=== PATIENT | female | born 1965 | race Caucasian/White ===

== ENCOUNTER 2020-12-24 00:47 | Emergency (ER) | payer OTHER ==
[2020-12-24] MEDS ORDERED: Reglan 10 MG/2 ML IV ONE (01:24)
[2020-12-24] MEDS ORDERED: TORAdol 30 mg Injection IV ONE (01:24)
--- NOTE | 2020-12-24 01:34 | ERPHSYRPT ---
- History of Present Illness Time Seen by Provider: 12/24/20 01:17 Historian: patient Exam Limitations: no limitations Patient Subjective Stated Complaint: . Triage Nursing Assessment: . Physician History: 55 years old female with history of hypertension, hyperlipidemia, chronic back pain presented to the ER with chief complaint of right flank pain sudden onset almost 3 hours ago, continuous, nonradiating, without any significant aggravating or relieving factors, associated with nausea but no vomiting. Denies any urinary symptoms. Denies any fever or chills. Does have history of appendectomy and cholecystectomy. Timing/Duration: hour(s) (3), constant, sudden, worse Activities at Onset: rest Quality: sharpness Abdominal Pain Onset Location: flank Pain Radiation: no radiation Severity of Pain-Max: severe Severity of Pain-Current: severe Modifying Factors: Improves With: nothing Associated Symptoms: nausea Previous symptoms: no prior history Allergies/Adverse Reactions: Sulfa (Sulfonamide Antibiotics) Allergy (Intermediate, Verified 12/24/20 01:06) Hives Home Medications: ALPRAZolam [Alprazolam] 0.5 mg PO Q8H PRN PRN 12/24/20 [History] Cyclobenzaprine HCl 10 mg [Cyclobenzaprine 10 MG] 10 mg PO Q12H PRN PRN 12/24/20 [History] Methadone HCl 5 mg PO TID 12/24/20 [History] lisinopriL [Lisinopril] 20 mg PO BID 12/24/20 [History] Hx Tetanus, Diphtheria Vaccination/Date Given: No Hx Influenza Vaccination/Date Given: Yes Hx Pneumococcal Vaccination/Date Given: No Immunizations Up to Date: Yes Travel Risk - International Travel Have you traveled outside of the country in past 3 weeks: No - Coronavirus Screening Are you exhibiting any of the following symptoms?: No Close contact with a COVID-19 positive Pt in past 14-21 Days: No - Vaccine Status Have you recieved a Covid-19 vaccination: No - Review of Systems Constitutional: No Symptoms Eyes: No Symptoms Ears, Nose, & Throat: No Symptoms Respiratory: No Symptoms Cardiac: No Symptoms Abdominal/Gastrointestinal: Abdominal Pain, Nausea Genitourinary Symptoms: No Symptoms Musculoskeletal: Arthralgias, Back Pain Skin: No Symptoms Neurological: No Symptoms Psychological: No Symptoms Endocrine: No Symptoms Hematologic/Lymphatic: No Symptoms Immunological/Allergic: No Symptoms - Past Medical History Pertinent Past Medical History: Yes Neurological History: Migraines ENT History: No Pertinent History Cardiac History: No Pertinent History Respiratory History: No Pertinent History Endocrine Medical History: No Pertinent History Musculoskeletal History: No Pertinent History GI Medical History: No Pertinent History History: No Pertinent History Psycho-Social History: Anxiety, Depression Female Reproductive Disorders: No Pertinent History - Past Surgical History Past Surgical History: Yes Neuro Surgical History: No Pertinent History Cardiac: No Pertinent History Respiratory: No Pertinent History Gastrointestinal: Appendectomy, Cholecystectomy Genitourinary: No Pertinent History Musculoskeletal: No Pertinent History Female Surgical History: Tubal Ligation - Social History Smoking Status: Never smoker Exposure to second hand smoke: No Drug Use: none Patient Lives Alone: No - Female History Hx Last Menstrual Period: Tubal Hx Now: No - Nursing Vital Signs Nursing Vital Signs: Initial Vital Signs Temperature 96.7 F 12/24/20 01:14 Pulse Rate 93 H 12/24/20 01:14 Respiratory Rate 20 12/24/20 01:14 Blood Pressure 165/136 12/24/20 01:14 O2 Sat by Pulse Oximetry 98 12/24/20 01:14 Pain Scale Pain Intensity 6 - Physical Exam General Appearance: no apparent distress, alert Eye Exam: PERRL/EOMI Ears, Nose, Throat Exam: normal ENT inspection, pharynx normal Neck Exam: normal inspection, full range of motion Respiratory Exam: normal breath sounds, lungs clear Cardiovascular Exam: regular rate/rhythm, normal heart sounds Gastrointestinal/Abdomen Exam: soft, normal bowel sounds, tenderness (Right flank) Back Exam: normal inspection Extremity Exam: normal inspection, normal range of motion Neurologic Exam: alert, oriented x 3, cooperative Skin Exam: normal color SpO2 Interpretation: normal SpO2: 98 O2 Delivery: Room Air Procedures - Central Line Time Of Procedure: 07:46 Timeout: Performed Central Line Lumen: triple Lumen Size: 7 [place] Central Line Procedure: chlorahexadine prep, sterile drapes applied, sterile dressing applied, Aseptic Technique, Seldinger Technique Central Line Postion: femoral (L) Anesthesia: 1% Lidocaine cc's of anesthesia: 4 Ultrasound Guided Placement: Yes Complications: none Central Line Post Position: sutured Ordered Tests: Medication Summary Discontinued Medications Generic Name Dose Route Start Last Admin Trade Name Freq PRN Reason Stop Dose Admin Hydralazine HCl 20 mg 12/24/20 06:24 12/24/20 06:32 Apresoline 20 Mg/Ml Inj IV 12/24/20 06:25 20 mg STAT ONE Administration Hydralazine HCl Confirm 12/24/20 06:24 Apresoline 20 Mg/Ml Inj Administered 12/24/20 06:25 Dose 20 mg .ROUTE .STK-MED ONE Hydromorphone HCl 1 mg 12/24/20 01:38 12/24/20 01:49 Hydromorphone 1 Mg/Ml Injection IM 12/24/20 01:39 1 mg STAT ONE Administration Hydromorphone HCl Confirm 12/24/20 01:41 Hydromorphone 1 Mg/Ml Injection Administered 12/24/20 01:42 Dose 1 mg .ROUTE .STK-MED ONE Hydromorphone HCl 1 mg 12/24/20 04:27 12/24/20 04:38 Hydromorphone 1 Mg/Ml Injection IV 12/24/20 04:28 1 mg STAT ONE Administration Hydromorphone HCl Confirm 12/24/20 04:33 Hydromorphone 1 Mg/Ml Injection Administered 12/24/20 04:34 Dose 1 mg .ROUTE .STK-MED ONE Ceftriaxone Sodium/Dextrose 2 g in 50 mls @ 100 mls/hr 12/24/20 04:27 12/24/20 05:16 Rocephin 2 Gm-D5w 50ml Bag IV 12/24/20 04:56 Infused STAT STA Infusion Sodium Chloride 1,000 mls @ 999 mls/hr 12/24/20 04:27 12/24/20 05:45 Sodium Chloride 0.9% 1000 Ml IV 12/24/20 05:27 Infused .Q1H1M STA Infusion Sodium Chloride Confirm 12/24/20 04:33 Sodium Chloride 0.9% 1000 Ml Administered 12/24/20 04:34 Dose 1,000 mls @ ud .ROUTE .STK-MED ONE Ceftriaxone Sodium/Dextrose Confirm 12/24/20 04:33 Rocephin 2 Gm-D5w 50ml Bag Administered 12/24/20 04:34 Dose 2 g in 50 mls @ ud IV .STK-MED ONE Nicardipine HCl 25 mg/ Sodium 250 mls @ 0 mls/hr 12/24/20 07:47 Chloride IV 01/23/21 07:46 .Q0M PRN TITRATE FOR BLOOD PRESSURE Protocol Titrate Ketorolac Tromethamine 30 mg 12/24/20 01:24 12/24/20 01:38 Toradol 30 Mg Injection IV 12/24/20 01:25 Not Given STAT ONE Metoclopramide HCl 10 mg 12/24/20 01:24 12/24/20 01:38 Reglan 10 Mg/2 Ml IV 12/24/20 01:25 Not Given STAT ONE Ondansetron HCl 4 mg 12/24/20 01:39 12/24/20 01:49 Zofran 4 Mg/2 Ml Vial IM 12/24/20 01:40 4 mg STAT ONE Administration Ondansetron HCl Confirm 12/24/20 01:41 Zofran 4 Mg/2 Ml Vial Administered 12/24/20 01:42 Dose 4 mg .ROUTE .STK-MED ONE Tamsulosin HCl 0.8 mg 12/24/20 03:37 12/24/20 03:39 Flomax 0.4 Mg PO 12/24/20 03:38 0.8 mg DAILY STA Administration Tamsulosin HCl Confirm 12/24/20 03:39 Flomax 0.4 Mg Administered 12/24/20 03:40 Dose 0.8 mg .ROUTE .STK-MED ONE Lab/Rad Data: Laboratory Result Diagrams 12/24/20 01:40 12/24/20 01:40 Laboratory Results 12/24/20 12/24/20 12/24/20 Range/Units 01:40 01:40 01:40 WBC 10.1 (4.0-10.5) K/mm3 RBC 4.68 (4.1-5.4) M/mm3 Hgb 14.2 (12.0-16.0) gm/dl Hct 44.8 (35-47) % MCV 95.7 (78-100) fl MCH 30.3 (26-32) pg MCHC 31.7 L (32-36) g/dl RDW 13.2 (11.5-14.0) % Plt Count 124 L (150-450) K/mm3 MPV 11.4 H (7.5-11.0) fl Gran % 84.5 H (36.0-66.0) % Eos # (Auto) 0.04 (0-0.5) Absolute Lymphs (auto) 1.14 (1.0-4.6) Absolute Monos (auto) 0.36 (0.0-1.3) Lymphocytes % 11.2 L (24.0-44.0) % Monocytes % 3.6 (0.0-12.0) % Eosinophils % 0.4 (0.00-5.0) % Basophils % 0.3 (0.0-0.4) % Absolute Granulocytes 8.57 H (1.4-6.9) Basophils # 0.03 (0-0.4) Sodium 138 (137-145) mmol/L Potassium 3.9 (3.5-5.1) mmol/L Chloride 103 (98-107) mmol/L Carbon Dioxide 21 L (22-30) mmol/L Anion Gap 18.0 H (5-15) MEQ/L BUN 26 H (7-17) mg/dL Creatinine 1.18 H (0.52-1.04) mg/dL Estimated GFR 50.2 ML/MIN Glucose 223 H (74-106) mg/dL Calcium 9.8 (8.4-10.2) mg/dL Total Bilirubin 0.50 (0.2-1.3) mg/dL AST 36 (14-36) U/L ALT 19 (0-35) U/L Alkaline Phosphatase 78 (38-126) U/L Serum Total Protein 7.1 (6.3-8.2) g/dL Albumin 4.1 (3.5-5.0) g/dL Lipase 83 (23-300) U/L Urine Color YELLOW (YELLOW) Urine Appearance CLOUDY (CLEAR) Urine pH 6.0 (5-6) Ur Specific [place] 1.013 (1.005-1.025) Urine Protein NEGATIVE (Negative) Urine Ketones TRACE (NEGATIVE) Urine Blood SMALL (0-5) Vaibhav/ul Urine Nitrite NEGATIVE (NEGATIVE) Urine Bilirubin NEGATIVE (NEGATIVE) Urine Urobilinogen 2 (0-1) mg/dL Ur Leukocyte Esterase LARGE (NEGATIVE) Urine WBC (Auto) 51-100 (0-5) /HPF Urine RBC (Auto) 6-10 (0-2) /HPF U Epithel Cells (Auto) NONE (FEW) /HPF Urine Bacteria (Auto) MODERATE (NEGATIVE) /HPF Urine Mucus (Auto) SLIGHT (NEGATIVE) /HPF Urine Culture Reflexed YES (NO) Urine Glucose 150 (NEGATIVE) mg/dL - Progress Progress: improved, pain not gone completely, re-examined Progress Note: 12/24/20 06:55 55 years old is evaluated for right flank pain. She is given pain medications multiple times and her pain is better. Work-up showed normal white count, kidney functions at baseline with mildly elevated gap. She does have UTI and given a dose of Rocephin. Patient has history of adult polycystic kidney disease and her blood pressure is in 200s, given hydralazine but still in 200 but denies any headache visual symptoms, chest pain palpitations or shortness of breath. Discussed with Dr. Mas for admission, recommended transfer to facility with urology services. Discussed with Dr. Humphreys at [facility] ER and patient is accepted for transfer. Discussed with Dr.: Jose, Other (Dr. Humphreys) Counseled pt/family regarding: lab results, diagnosis, rad results - Departure Departure Disposition: Transfer Clinical Impression: Ureterolithiasis, Acute UTI, Uncontrolled hypertension Condition: Stable Critical Care Time: Yes Critical Care Time(excluding separately billable procedures): Critical 30-74 mins Referrals: LORAINE BOO [Primary Care Provider] -
[2020-12-24] MEDS ORDERED: Hydromorphone 1 mg/ml Injection IM ONE (01:38)
[2020-12-24] MEDS ORDERED: Zofran 4 MG/2 ML VIAL IM ONE (01:39)
[2020-12-24] MEDS ORDERED: Hydromorphone 1 mg/ml Injection ONE ×2 (01:41→04:33)
[2020-12-24] MEDS ORDERED: Zofran 4 MG/2 ML VIAL ONE (01:41)
[2020-12-24 02:02] LABS: Absolute Neutrophil Ct (ANC) 8.57 (1.4-6.9); BASOPHIL % 0.3 % (0.0-0.4); Basophil (Absolute #) 0.03 (0-0.4); Eosinophil % 0.4 % (0.00-5.0); Eosinophil (Absolute #) 0.04 (0-0.5); Hematocrit 44.8 % (35-47); Hemoglobin 14.2 gm/dl (12.0-16.0); Lymphocyte (Absolute #) 1.14 (1.0-4.6); Lymphocytes % 11.2 % (24.0-44.0); Mean Cell Volume 95.7 fl (78-100); Mean Corpuscular Hemoglobin 30.3 pg (26-32); Mean Corpuscular Hgb Concent. 31.7 g/dl (32-36); Mean Platelet Volume 11.4 fl (7.5-11.0); Monocyte (Absolute #) 0.36 (0.0-1.3); Monocytes % 3.6 % (0.0-12.0); Neutrophil % 84.5 % (36.0-66.0); Platelet Count 124 K/mm3 (150-450); Red Blood Count 4.68 M/mm3 (4.1-5.4); Red Cell Distribution Width 13.2 % (11.5-14.0); White Blood Count 10.1 K/mm3 (4.0-10.5)
[2020-12-24 02:07] LABS: Appearance CLOUDY (CLEAR); Bacteria MODERATE /HPF (NEGATIVE); Bilirubin NEGATIVE (NEGATIVE); Blood SMALL Ery/ul (0-5); Glucose 150 mg/dL (NEGATIVE); Ketones TRACE (NEGATIVE); Leukocyte Esterase LARGE (NEGATIVE); Mucus SLIGHT /HPF (NEGATIVE); Nitrite NEGATIVE (NEGATIVE); Protein,Urine Dip NEGATIVE (Negative); Specific Gravity 1.013 (1.005-1.025); Urobilinogen 2 mg/dL (0-1); WBC 51-100 /HPF (0-5)
[2020-12-24 02:21] LABS: ALBUMIN 4.1 g/dL (3.5-5.0); BILIRUBIN,TOTAL 0.5 mg/dL (0.2-1.3); Calcium 9.8 mg/dL (8.4-10.2); Creatinine 1 1.18 mg/dL (0.52-1.04); EST GLOMERULAR FILTRATION RATE 50.2 ML/MIN; Potassium 3.9 mmol/L (3.5-5.1); Total Protein 7.1 g/dL (6.3-8.2)
[2020-12-24] MEDS ORDERED: Flomax 0.4 MG PO STA (03:37)
[2020-12-24] MEDS ORDERED: Flomax 0.4 MG ONE (03:39)
[2020-12-24] MEDS ORDERED: ROCEPHIN 2 Gm-D5w 50ML BAG** 2 G/50 ML IVPB IV STA (04:27)
[2020-12-24] MEDS ORDERED: Hydromorphone 1 mg/ml Injection IV ONE (04:27)
[2020-12-24] MEDS ORDERED: Sodium Chloride 0.9% 1000 ML 1,000 ML IV STA (04:27)
[2020-12-24] MEDS ORDERED: ROCEPHIN 2 Gm-D5w 50ML BAG** 2 G/50 ML IVPB IV ONE (04:33)
[2020-12-24] MEDS ORDERED: Sodium Chloride 0.9% 1000 ML 1,000 ML ONE (04:33)
[2020-12-24 06:23] VITALS: PULSE 90
[2020-12-24] MEDS ORDERED: APRESOLINE 20 MG/ML INJ ONE (06:24)
[2020-12-24] MEDS ORDERED: APRESOLINE 20 MG/ML INJ IV ONE (06:24)
[2020-12-24 06:57] VITALS: O2SAT 98
[2020-12-24] MEDS ORDERED: CARDENE 25 MG/10 ML*** 25 MG in Sodium Chloride 0.9% 250 ML 240 ML IV PRN (07:47)
[2020-12-24 08:12] VITALS: BP 186/124
--- NOTE | 2020-12-24 08:59 | XRAY ---
Indication: Right flank pain. Multiple contiguous axial images obtained through the abdomen and pelvis without contrast. Comparison: None. Lung bases demonstrates minimal bibasilar fibrosis/scarring. No infiltrate or effusion. Heart is not enlarged. Stomach is mildly fluid distended. Noncontrasted stomach and bowel loops appear nonobstructed. Cholecystectomy and appendectomy reported. No free fluid/air. Common bile duct distended up to 1.6 cm. Numerous bilateral renal cysts favoring polycystic kidney disease. There is a 4 mm right UVJ calculus. Proximal right ureter slightly prominent with mild hydronephrosis/renal edema and minimal perinephric stranding consistent with obstructive uropathy. Nonobstructing 3 mm left renal calculus. Remaining liver, pancreas, spleen, adrenal glands, kidneys, ureters, bladder, uterus, and aorta unremarkable for noncontrast exam. Osseous structures intact with mild osteopenia and mild/moderate multilevel degenerative spondylosis. Impression: 1. 4 mm right UVJ obstructing calculus as detailed. Additional nonobstructing left renal micro-calculus. 2. Distended common bile duct better evaluated with MRCP/ERCP if clinically warranted. 3. Incidental polycystic kidney disease and chronic bony findings. Comment: Preliminary interpretation was made by [facility]. No critical discrepancy.
== END 2020-12-24 08:56 | disposition short-term general hospital (02) ==
LOC: ED 00:47
DX: N20.1 Calculus of ureter (principal); N39.0 Urinary tract infection, site not specified; I10 Essential (primary) hypertension; E78.5 Hyperlipidemia, unspecified; R10.9 Unspecified abdominal pain; R11.0 Nausea; Z79.899 Other long term (current) drug therapy
CPT/HCPCS: 36415; 36556; 74176; 80053; 81001; 83690; 85025; 87077; 87086; 87186; 96360; 96365; 96372; 96375; 96376; 99285; 99291; J0360; J0696; J1170; J2405; A9270-GY

== ENCOUNTER 2021-10-01 16:06 | Emergency (ER) | payer OTHER ==
--- NOTE | 2021-10-01 16:11 | ERPHSYRPT ---
- History of Present Illness Time Seen by Provider: 10/01/21 16:11 Source: patient Exam Limitations: no limitations Physician History: This is a morbidly obese 56 y/o white female who was seen by pcp at clinic yesterday and had blood work performed. pt has bp issues and is on lisinopril. she was also considered pre diabetic. pt was notified today about blood glucose level of over 800. pt has been nauseated and has been weak lately. pt denies cp and denies sob. she does not have abd pain. she does not have a headache or visual changes Timing/Duration: today Severity: mild Associated Symptoms: nausea, weakness, No shortness of breath, No chest pain, No headaches Allergies/Adverse Reactions: Sulfa (Sulfonamide Antibiotics) Allergy (Intermediate, Verified 10/01/21 16:12) Hives Home Medications: ALPRAZolam [Alprazolam] 0.5 mg PO Q8H PRN PRN 12/24/20 [History] lisinopriL [Lisinopril] 20 mg PO BID 12/24/20 [History] Amlodipine Besylate 5 mg [Norvasc 5 mg] 10 mg PO HS 10/01/21 [History] Gabapentin 400 mg [Neurontin 400 MG] 1 tab PO TID 10/01/21 [History] Hydrocodone/Acetaminophen [Hydrocodone-Acetamin 10-325 mg] 1 tab PO QID 10/01/21 [History] Propranolol HCl [Propranolol HCl ER] 1 tab PO DAILY 10/01/21 [History] Tizanidine HCl 1 tab PO BID 10/01/21 [History] Hx Tetanus, Diphtheria Vaccination/Date Given: No Hx Influenza Vaccination/Date Given: Yes Hx Pneumococcal Vaccination/Date Given: No Travel Risk - International Travel Have you traveled outside of the country in past 3 weeks: No - Coronavirus Screening Are you exhibiting any of the following symptoms?: No Close contact with a COVID-19 positive Pt in past 14-21 Days: No - Vaccine Status Have you recieved a Covid-19 vaccination: No - Review of Systems Constitutional: Weakness Eyes: No Symptoms Ears, Nose, & Throat: No Symptoms Respiratory: No Symptoms Cardiac: No Symptoms Abdominal/Gastrointestinal: Nausea, No Abdominal Pain, No Vomiting, No Diarrhea Genitourinary Symptoms: No Symptoms Musculoskeletal: No Symptoms Skin: No Symptoms Neurological: No Symptoms Psychological: No Symptoms Endocrine: No Symptoms Hematologic/Lymphatic: No Symptoms Immunological/Allergic: No Symptoms All Other Systems: Reviewed and Negative - Past Medical History Pertinent Past Medical History: Yes Neurological History: Migraines ENT History: No Pertinent History Cardiac History: No Pertinent History Respiratory History: No Pertinent History Endocrine Medical History: No Pertinent History Musculoskeletal History: No Pertinent History GI Medical History: No Pertinent History History: No Pertinent History Psycho-Social History: Anxiety, Depression Female Reproductive Disorders: No Pertinent History - Past Surgical History Past Surgical History: Yes Neuro Surgical History: No Pertinent History Cardiac: No Pertinent History Respiratory: No Pertinent History Gastrointestinal: Appendectomy, Cholecystectomy Genitourinary: No Pertinent History Musculoskeletal: No Pertinent History Female Surgical History: Tubal Ligation - Social History Smoking Status: Never smoker Exposure to second hand smoke: No Drug Use: none Patient Lives Alone: No - Nursing Vital Signs Nursing Vital Signs: Initial Vital Signs Temperature 96.5 F 10/01/21 16:18 Pulse Rate 92 H 10/01/21 16:18 Respiratory Rate 14 10/01/21 16:18 Blood Pressure 163/130 10/01/21 16:18 O2 Sat by Pulse Oximetry 88 L 10/01/21 16:18 Pain Scale Pain Intensity 0 - Physical Exam General Appearance: no apparent distress, alert, anxiety, obese Eye Exam: PERRL/EOMI, eyes nml inspection Ears, Nose, Throat Exam: normal ENT inspection, moist mucous membranes Neck Exam: normal inspection, non-tender, supple, full range of motion Respiratory Exam: normal breath sounds, lungs clear, airway intact, No chest tenderness, No respiratory distress Cardiovascular Exam: regular rate/rhythm, normal heart sounds, normal peripheral pulses Gastrointestinal/Abdomen Exam: soft, normal bowel sounds, No tenderness Pelvic Exam: not done Rectal Exam: not done Back Exam: normal inspection, normal range of motion, No CVA tenderness, No vertebral tenderness Extremity Exam: normal inspection, normal range of motion, pelvis stable Neurologic Exam: alert, oriented x 3, cooperative, bottle packer II-XII nml as tested, normal mood/affect, nml cerebellar function, nml station & gait, sensation nml Skin Exam: normal color, warm, dry Lymphatic Exam: No adenopathy SpO2 Interpretation: normal O2 Delivery: Room Air - Course Nursing assessment & vital signs reviewed: Yes EKG Interpreted by Me: RATE (77), Sinus Rhythm, Right [place] Deviation, NORMAL INTERVALS, NORMAL QRS, Non-specific ST Changes, Other (no acute ischemia, the sinus tach on comparison ekg dated 07/07/20 has resolved) Ordered Tests: Active Orders 24 hr Category Date Time Status Reduction Furnace Operator STAT Care 10/01/21 16:28 Active EKG-ER Only STAT Care 10/01/21 16:27 Active IV Insertion STAT Care 10/01/21 16:27 Active IV Insertion-2nd Peripheral STAT Care 10/01/21 16:59 Active POCT Glucose Check STAT Care 10/01/21 16:27 Active Pulse Oximetry (ED) STAT Care 10/01/21 16:27 Active CBC W DIFF Stat Lab 10/01/21 17:05 Completed CMP Stat Lab 10/01/21 17:05 Completed CULTURE,URINE Stat Lab 10/01/21 18:23 Received Lactic Acid Urgent Lab 10/01/21 16:39 Completed MAGNESIUM Stat Lab 10/01/21 17:05 Completed POCT GLUCOSE Stat Lab 10/01/21 18:07 Completed POCT GLUCOSE Stat Lab 10/01/21 19:09 Completed TROPONIN Q3H Lab 10/01/21 17:00 Completed TROPONIN Q3H Lab 10/01/21 21:00 Ordered UA W/RFX CULTURE Stat Lab 10/01/21 18:23 Completed Medication Summary Generic Name Dose Route Start Last Admin Trade Name Freq PRN Reason Stop Dose Admin Sodium Chloride 1,000 mls @ 100 mls/hr 10/01/21 16:30 10/01/21 19:24 Sodium Chloride 0.9% 1000 Ml IV 10/31/21 16:29 999 mls/hr .Q10H BARBER Infusion Discontinued Medications Generic Name Dose Route Start Last Admin Trade Name Freq PRN Reason Stop Dose Admin Ceftriaxone Sodium/Dextrose 1 g in 50 mls @ 100 mls/hr 10/01/21 19:03 10/01/21 19:06 Rocephin 1 Gm-D5w 50 Ml Bag IV 10/01/21 19:32 100 mls/hr STAT STA 100 mls/hr Administration Ceftriaxone Sodium/Dextrose Confirm 10/01/21 19:05 Rocephin 1 Gm-D5w 50 Ml Bag Administered 10/01/21 19:06 Dose 1 g in 50 mls @ ud IV .STK-MED ONE Insulin Human Regular 18 unit 10/01/21 16:34 10/01/21 16:50 Insulin Regular, Human 1 Unit IV 10/01/21 16:35 18 unit STAT ONE Administration Insulin Human Regular Confirm 10/01/21 16:49 Insulin Regular, Human 1 Unit Administered 10/01/21 16:50 Dose 18 unit .ROUTE .STK-MED ONE Insulin Human Regular 5 unit 10/01/21 18:12 10/01/21 18:22 Insulin Regular, Human 1 Unit IV 10/01/21 18:13 5 unit STAT ONE Administration Insulin Human Regular Confirm 10/01/21 18:17 Insulin Regular, Human 1 Unit Administered 10/01/21 18:18 Dose 5 unit .ROUTE .STK-MED ONE Ondansetron HCl 4 mg 10/01/21 16:27 10/01/21 16:35 Ondansetron Hcl 4 Mg/2 Ml Vial IV 10/01/21 16:28 4 mg STAT ONE Administration Ondansetron HCl Confirm 10/01/21 16:34 Ondansetron Hcl 4 Mg/2 Ml Vial Administered 10/01/21 16:35 Dose 4 mg .ROUTE .STK-MED ONE Lab/Rad Data: Laboratory Result Diagrams 10/01/21 17:05 10/01/21 17:05 Laboratory Results 10/01/21 10/01/21 10/01/21 Range/Units 19:09 18:23 18:07 WBC (4.0-10.5) K/mm3 RBC (4.1-5.4) M/mm3 Hgb (12.0-16.0) gm/dl Hct (35-47) % MCV (78-100) fl MCH (26-32) pg MCHC (32-36) g/dl RDW (11.5-14.0) % Plt Count (150-450) K/mm3 MPV (7.5-11.0) fl Gran % (36.0-66.0) % Eos # (Auto) (0-0.5) Absolute Lymphs (auto) (1.0-4.6) Absolute Monos (auto) (0.0-1.3) Lymphocytes % (24.0-44.0) % Monocytes % (0.0-12.0) % Eosinophils % (0.00-5.0) % Basophils % (0.0-0.4) % Absolute Granulocytes (1.4-6.9) Basophils # (0-0.4) Sodium (137-145) mmol/L Potassium (3.5-5.1) mmol/L Chloride (98-107) mmol/L Carbon Dioxide (22-30) mmol/L Anion Gap (5-15) MEQ/L BUN (7-17) mg/dL Creatinine (0.52-1.04) mg/dL Estimated GFR ML/MIN Glucose (74-106) mg/dL POC Glucometer 232 H 373 H (74 to 106) mg/dL Lactic Acid (0.4-2.0) Calcium (8.4-10.2) mg/dL Magnesium (1.6-2.3) mg/dL Total Bilirubin (0.2-1.3) mg/dL AST (14-36) U/L ALT (0-35) U/L Alkaline Phosphatase (38-126) U/L Troponin I (0.000-0.034) ng/mL Serum Total Protein (6.3-8.2) g/dL Albumin (3.5-5.0) g/dL Urinalys Dipstick Clnc MAIN LAB Urine Color YELLOW (YELLOW) Urine Appearance CLEAR (CLEAR) Urine pH 5.5 (5-6) Ur Specific [place] 1.010 (1.005-1.025) POC Urine Protein Conf NEGATIVE (Negative) Urine Ketones NEGATIVE (NEGATIVE) Urine Nitrite NEGATIVE (NEGATIVE) Urine Bilirubin NEGATIVE (NEGATIVE) Urine Urobilinogen 0.2 (0-1) mg/dL Urine Leukocytes TRACE (NEGATIVE) Urine WBC (Auto) 26-50 (0-5) /HPF Urine RBC (Auto) 3-5 (0-2) /HPF U Epithel Cells (Auto) NONE (FEW) /HPF Urine Bacteria (Auto) MODERATE (NEGATIVE) /HPF Urine RBC NEGATIVE (0-5) Vaibhav/ul Urine Mucus (Auto) SLIGHT (NEGATIVE) /HPF Urine Yeast (Budding) Few (NEGATIVE) /HPF Ur Culture Indicated? YES Urine Glucose >=1000 (NEGATIVE) mg/dL 10/01/21 10/01/21 10/01/21 Range/Units 17:05 17:05 17:00 WBC 4.4 (4.0-10.5) K/mm3 RBC 4.82 (4.1-5.4) M/mm3 Hgb 15.1 (12.0-16.0) gm/dl Hct 43.6 (35-47) % MCV 90.5 (78-100) fl MCH 31.3 (26-32) pg MCHC 34.6 (32-36) g/dl RDW 13.5 (11.5-14.0) % Plt Count 164 (150-450) K/mm3 MPV 11.8 H (7.5-11.0) fl Gran % 61.6 (36.0-66.0) % Eos # (Auto) 0.16 (0-0.5) Absolute Lymphs (auto) 1.38 (1.0-4.6) Absolute Monos (auto) 0.13 (0.0-1.3) Lymphocytes % 31.5 (24.0-44.0) % Monocytes % 3.0 (0.0-12.0) % Eosinophils % 3.7 (0.00-5.0) % Basophils % 0.2 (0.0-0.4) % Absolute Granulocytes 2.70 (1.4-6.9) Basophils # 0.01 (0-0.4) Sodium 127 L (137-145) mmol/L Potassium 4.4 (3.5-5.1) mmol/L Chloride 87 L (98-107) mmol/L Carbon Dioxide 25 (22-30) mmol/L Anion Gap 19.1 H (5-15) MEQ/L BUN 50 H (7-17) mg/dL Creatinine 1.64 H (0.52-1.04) mg/dL Estimated GFR 34.2 ML/MIN Glucose 787 H* (74-106) mg/dL POC Glucometer (74 to 106) mg/dL Lactic Acid (0.4-2.0) Calcium 10.3 H (8.4-10.2) mg/dL Magnesium 2.0 (1.6-2.3) mg/dL Total Bilirubin 1.30 (0.2-1.3) mg/dL AST 20 (14-36) U/L ALT 19 (0-35) U/L Alkaline Phosphatase 118 (38-126) U/L Troponin I < 0.012 (0.000-0.034) ng/mL Serum Total Protein 7.2 (6.3-8.2) g/dL Albumin 4.3 (3.5-5.0) g/dL Urinalys Dipstick Clnc Urine Color (YELLOW) Urine Appearance (CLEAR) Urine pH (5-6) Ur Specific [place] (1.005-1.025) POC Urine Protein Conf (Negative) Urine Ketones (NEGATIVE) Urine Nitrite (NEGATIVE) Urine Bilirubin (NEGATIVE) Urine Urobilinogen (0-1) mg/dL Urine Leukocytes (NEGATIVE) Urine WBC (Auto) (0-5) /HPF Urine RBC (Auto) (0-2) /HPF U Epithel Cells (Auto) (FEW) /HPF Urine Bacteria (Auto) (NEGATIVE) /HPF Urine RBC (0-5) Vaibhav/ul Urine Mucus (Auto) (NEGATIVE) /HPF Urine Yeast (Budding) (NEGATIVE) /HPF Ur Culture Indicated? Urine Glucose (NEGATIVE) mg/dL 10/01/21 Range/Units 16:39 WBC (4.0-10.5) K/mm3 RBC (4.1-5.4) M/mm3 Hgb (12.0-16.0) gm/dl Hct (35-47) % MCV (78-100) fl MCH (26-32) pg MCHC (32-36) g/dl RDW (11.5-14.0) % Plt Count (150-450) K/mm3 MPV (7.5-11.0) fl Gran % (36.0-66.0) % Eos # (Auto) (0-0.5) Absolute Lymphs (auto) (1.0-4.6) Absolute Monos (auto) (0.0-1.3) Lymphocytes % (24.0-44.0) % Monocytes % (0.0-12.0) % Eosinophils % (0.00-5.0) % Basophils % (0.0-0.4) % Absolute Granulocytes (1.4-6.9) Basophils # (0-0.4) Sodium (137-145) mmol/L Potassium (3.5-5.1) mmol/L Chloride (98-107) mmol/L Carbon Dioxide (22-30) mmol/L Anion Gap (5-15) MEQ/L BUN (7-17) mg/dL Creatinine (0.52-1.04) mg/dL Estimated GFR ML/MIN Glucose (74-106) mg/dL POC Glucometer (74 to 106) mg/dL Lactic Acid 2.0 (0.4-2.0) Calcium (8.4-10.2) mg/dL Magnesium (1.6-2.3) mg/dL Total Bilirubin (0.2-1.3) mg/dL AST (14-36) U/L ALT (0-35) U/L Alkaline Phosphatase (38-126) U/L Troponin I (0.000-0.034) ng/mL Serum Total Protein (6.3-8.2) g/dL Albumin (3.5-5.0) g/dL Urinalys Dipstick Clnc Urine Color (YELLOW) Urine Appearance (CLEAR) Urine pH (5-6) Ur Specific [place] (1.005-1.025) POC Urine Protein Conf (Negative) Urine Ketones (NEGATIVE) Urine Nitrite (NEGATIVE) Urine Bilirubin (NEGATIVE) Urine Urobilinogen (0-1) mg/dL Urine Leukocytes (NEGATIVE) Urine WBC (Auto) (0-5) /HPF Urine RBC (Auto) (0-2) /HPF U Epithel Cells (Auto) (FEW) /HPF Urine Bacteria (Auto) (NEGATIVE) /HPF Urine RBC (0-5) Vaibhav/ul Urine Mucus (Auto) (NEGATIVE) /HPF Urine Yeast (Budding) (NEGATIVE) /HPF Ur Culture Indicated? Urine Glucose (NEGATIVE) mg/dL - Departure Departure Disposition: Home Clinical Impression: Hyperglycemia, UTI (urinary tract infection) Condition: Stable Critical Care Time: No Referrals: LORAINE BOO [NON-STAFF PHY W/O PRIVILEGES] - Follow up/PCP as directed Additional Instructions: drink plenty of fluids. take medications as prescribed. follow up with your prescribing doctor tomorrow for further evaluation and management Prescriptions: Ciprofloxacin [Cipro 500 MG] 500 mg PO BID #14 tablet
[2021-10-01] MEDS ORDERED: Zofran 4 MG/2 ML VIAL IV ONE (16:27)
[2021-10-01] MEDS ORDERED: Sodium Chloride 0.9% 1000 ML 1,000 ML IV SCH (16:30)
[2021-10-01] MEDS ORDERED: Sodium Chloride 0.9% 1000 ML 1,000 ML ONE (16:34)
[2021-10-01] MEDS ORDERED: Zofran 4 MG/2 ML VIAL ONE (16:34)
[2021-10-01] MEDS ORDERED: HUMULIN R IV ONE ×2 (16:34→18:12)
[2021-10-01] MEDS ORDERED: HUMULIN R ONE ×2 (16:49→18:17)
[2021-10-01 17:12] LABS: Basophil (Absolute #) 0.01 (0-0.4); Eosinophil % 3.7 % (0.00-5.0); Eosinophil (Absolute #) 0.16 (0-0.5); Hematocrit 43.6 % (35-47); Hemoglobin 15.1 gm/dl (12.0-16.0); Lymphocyte (Absolute #) 1.38 (1.0-4.6); Lymphocytes % 31.5 % (24.0-44.0); Mean Cell Volume 90.5 fl (78-100); Mean Corpuscular Hemoglobin 31.3 pg (26-32); Mean Corpuscular Hgb Concent. 34.6 g/dl (32-36); Mean Platelet Volume 11.8 fl (7.5-11.0); Monocyte (Absolute #) 0.13 (0.0-1.3); Neutrophil % 61.6 % (36.0-66.0); Platelet Count 164 K/mm3 (150-450); Red Blood Count 4.82 M/mm3 (4.1-5.4); Red Cell Distribution Width 13.5 % (11.5-14.0); White Blood Count 4.4 K/mm3 (4.0-10.5)
[2021-10-01 17:35] LABS: ALBUMIN 4.3 g/dL (3.5-5.0); ANION GAP 19.1 MEQ/L (5-15); BILIRUBIN,TOTAL 1.3 mg/dL (0.2-1.3); Calcium 10.3 mg/dL (8.4-10.2); Creatinine 1 1.64 mg/dL (0.52-1.04); EST GLOMERULAR FILTRATION RATE 34.2 ML/MIN; Potassium 4.4 mmol/L (3.5-5.1); Total Protein 7.2 g/dL (6.3-8.2)
[2021-10-01 18:48] LABS: Appearance CLEAR (CLEAR)
[2021-10-01 18:50] LABS: Bilirubin NEGATIVE (NEGATIVE); Dipstick done @ ? MAIN LAB; Glucose >=1000 mg/dL (NEGATIVE); Ketones NEGATIVE (NEGATIVE); Nitrite NEGATIVE (NEGATIVE); Ph 5.5 (5-6); Protein,Urine Dip NEGATIVE (Negative); RBC NEGATIVE Ery/ul (0-5); Urobilinogen 0.2 mg/dL (0-1)
[2021-10-01 18:55] LABS: Bacteria MODERATE /HPF (NEGATIVE); Mucus SLIGHT /HPF (NEGATIVE); WBC 26-50 /HPF (0-5)
[2021-10-01 19:02] LABS: Budding Yeast Few /HPF (NEGATIVE); Urine Cultured Indicated? YES
[2021-10-01] MEDS ORDERED: ROCEPHIN 1 Gm-D5w 50 ml Bag** 1 G/50 ML IVPB IV STA (19:03)
[2021-10-01] MEDS ORDERED: ROCEPHIN 1 Gm-D5w 50 ml Bag** 1 G/50 ML IVPB IV ONE (19:05)
[2021-10-01 20:08] LABS: INFLUENZA A NEGATIVE (NEGATIVE); INFLUENZA B NEGATIVE (NEGATIVE); RESPIRATORY SYNCTIAL VIRUS NEGATIVE (Negative); SARS-CoV-2 Xpert Express NEGATIVE (NEGATIVE)
[2021-10-01 20:33] VITALS: BP 110/75; PULSE 76; O2SAT 94
== END 2021-10-01 20:37 | disposition home or self-care (01) ==
LOC: ED 16:06
DX: N39.0 Urinary tract infection, site not specified (principal); R73.9 Hyperglycemia, unspecified; R11.0 Nausea; R53.1 Weakness; Z79.891 Long term (current) use of opiate analgesic; Z79.899 Other long term (current) drug therapy; Z20.828 Contact with and (suspected) exposure to other viral communicable diseases
CPT/HCPCS: 0241U; 36000; 36415; 80053; 81015; 82947; 83605; 83735; 84484; 85025; 87086; 93005; 93041; 94760; 96365; 96374; 96375; 96376; 99285; 87077; 87186; J0696; J1815; J2405

== ENCOUNTER 2021-10-05 16:45 | Observation (INO) | payer OTHER ==
[2021-10-05] MEDS ORDERED: Sodium Chloride 0.9% 1000 ML 1,000 ML IV STA ×3 (17:24→23:18)
[2021-10-05] MEDS ORDERED: HUMULIN R SQ ONE (17:24)
[2021-10-05] MEDS ORDERED: HUMULIN R 100 UNIT in Sodium Chloride 0.9% 100 ML BAG 100 ML IV PRN (17:32)
[2021-10-05] MEDS ORDERED: HUMULIN R ONE ×2 (17:39→17:57)
[2021-10-05] MEDS ORDERED: Sodium Chloride 0.9% 1000 ML 1,000 ML ONE ×3 (17:39→23:17)
[2021-10-05 17:50] LABS: VBG BASE EXCESS 2.2 (-2.0-2.0); VBG CARBOXYHEMOGLOBIN 5.1 % T HGB (0.0-6.9); VBG HCO3- 25.1 meq/L (22-28); VBG HEMOGLOBIN 14.2; VBG O2 SATURATION 95.7 (95-100); VBG POTASSIUM 5.4 (3.5-5.1); VBG pH 7.49 (7.32-7.42)
[2021-10-05] MEDS ORDERED: Sodium Chloride 0.9% 100 ML BAG 100 ML ONE (17:57)
[2021-10-05 18:03] LABS: Absolute Neutrophil Ct (ANC) 2.88 (1.4-6.9); Basophil (Absolute #) 0.03 (0-0.4); Eosinophil % 4.8 % (0.00-5.0); Eosinophil (Absolute #) 0.23 (0-0.5); Hematocrit 41.9 % (35-47); Hemoglobin 13.9 gm/dl (12.0-16.0); Lymphocyte (Absolute #) 1.25 (1.0-4.6); Lymphocytes % 25.9 % (24.0-44.0); Mean Cell Volume 95.2 fl (78-100); Mean Corpuscular Hemoglobin 31.6 pg (26-32); Mean Corpuscular Hgb Concent. 33.2 g/dl (32-36); Mean Platelet Volume 12.5 fl (7.5-11.0); Monocyte (Absolute #) 0.43 (0.0-1.3); Monocytes % 8.9 % (0.0-12.0); Neutrophil % 59.8 % (36.0-66.0); Platelet Count 124 K/mm3 (150-450); Red Cell Distribution Width 13.9 % (11.5-14.0); White Blood Count 4.8 K/mm3 (4.0-10.5)
[2021-10-05 18:15] LABS: ALBUMIN 3.9 g/dL (3.5-5.0); ALKALINE PHOSPHATASE 107 U/L (38-126); ANION GAP 16.1 MEQ/L (5-15); BLOOD UREA NITROGEN 40 mg/dL (7-17); CHLORIDE 92 mmol/L (98-107); Calcium 9.9 mg/dL (8.4-10.2); Carbon Dioxide 24 mmol/L (22-30); Creatinine 1 1.34 mg/dL (0.52-1.04); EST GLOMERULAR FILTRATION RATE 43.2 ML/MIN; ETHYL ALCOHOL < 10 mg/dL (0-10); MAGNESIUM 1.9 mg/dL (1.6-2.3); Potassium 5.2 mmol/L (3.5-5.1); SGOT/AST 20 U/L (14-36); SGPT/ALT 18 U/L (0-35); SODIUM 127 mmol/L (137-145); Total Protein 6.5 g/dL (6.3-8.2)
[2021-10-05 18:28] LABS: Glucose 796 mg/dL (74-106)
[2021-10-05 18:31] LABS: Bacteria RARE /HPF (NEGATIVE); Epithelial Cells RARE /HPF (FEW)
[2021-10-05 18:32] LABS: Appearance CLEAR (CLEAR); Bilirubin NEGATIVE (NEGATIVE); Glucose >=1000 mg/dL (NEGATIVE); Ketones NEGATIVE (NEGATIVE); Nitrite NEGATIVE (NEGATIVE); Protein,Urine Dip NEGATIVE (Negative); RBC TRACE-INTACT Ery/ul (0-5); Urine Cultured Indicated? YES; Urobilinogen 0.2 mg/dL (0-1)
[2021-10-05 18:33] LABS: Dipstick done @ ? MAIN LAB
--- NOTE | 2021-10-05 18:39 | ERPHSYRPT ---
- History of Present Illness Source: patient, family Exam Limitations: clinical condition Patient Subjective Stated Complaint: pt here for high blood sugar at home today, she was seen here on thu, for same thing and dx with UTI. she is not taking her metformine, Triage Nursing Assessment: pt alert, resp easy, face mask in place, skin w/d/p. abd soft, no pain Timing/Duration: today Severity: moderate Modifying Factors: Improves With: nothing Hx Tetanus, Diphtheria Vaccination/Date Given: No Hx Influenza Vaccination/Date Given: Yes Hx Pneumococcal Vaccination/Date Given: No Immunizations Up to Date: Yes <SUSAN DELA CRUZ - Last Filed: 10/05/21 18:34> <BILL BANKS - Last Filed: 10/05/21 21:26> - History of Present Illness Time Seen by Provider: 10/05/21 17:20 Physician History: Patient is a 56-year-old female who presents with a blood sugar which is "high". She measured it on a newly acquired glucometer. She was seen in the ER on Thursday of this week with a blood sugar greater than 800 was diagnosed with UTI and was put on metformin which she has not been taking as prescribed. She seems somewhat altered. We find her blood sugar to be higher than our POC glucometer as well. (SUSAN DELA CRUZ) Allergies/Adverse Reactions: Sulfa (Sulfonamide Antibiotics) Allergy (Intermediate, Verified 10/05/21 17:08) Hives Home Medications: ALPRAZolam [Alprazolam] 0.5 mg PO Q8H PRN PRN 12/24/20 [History] lisinopriL [Lisinopril] 20 mg PO BID 12/24/20 [History] Amlodipine Besylate 5 mg [Norvasc 5 mg] 10 mg PO HS 10/01/21 [History] Gabapentin 400 mg [Neurontin 400 MG] 1 tab PO TID 10/01/21 [History] Hydrocodone/Acetaminophen [Hydrocodone-Acetamin 10-325 mg] 1 tab PO QID 10/01/21 [History] Propranolol HCl [Propranolol HCl ER] 1 tab PO DAILY 10/01/21 [History] Tizanidine HCl 1 tab PO BID 10/01/21 [History] Travel Risk - International Travel Have you traveled outside of the country in past 3 weeks: No - Coronavirus Screening Are you exhibiting any of the following symptoms?: No - Vaccine Status Have you recieved a Covid-19 vaccination: No <SUSAN DELA CRUZ - Last Filed: 10/05/21 18:34> - Review of Systems Constitutional: No Fever, No Chills Eyes: No Symptoms Ears, Nose, & Throat: No Symptoms Respiratory: No Cough, No Dyspnea Cardiac: No Chest Pain, No Edema, No Syncope Abdominal/Gastrointestinal: No Abdominal Pain, No Nausea, No Vomiting, No Diarrhea Genitourinary Symptoms: No Dysuria Musculoskeletal: No Back Pain, No Neck Pain Skin: No Rash Neurological: No Dizziness, No Focal Weakness, No Sensory Changes Psychological: No Symptoms Endocrine: No Symptoms All Other Systems: Reviewed and Negative <MARCOSRIGOSUSAN - Last Filed: 10/05/21 18:34> - Past Medical History Pertinent Past Medical History: Yes Neurological History: Migraines ENT History: No Pertinent History Cardiac History: No Pertinent History Respiratory History: No Pertinent History Endocrine Medical History: Diabetes Type II Musculoskeletal History: No Pertinent History GI Medical History: No Pertinent History History: No Pertinent History Psycho-Social History: Anxiety, Depression Female Reproductive Disorders: No Pertinent History Other Medical History: uti 2021 - Past Surgical History Past Surgical History: Yes Neuro Surgical History: No Pertinent History Cardiac: No Pertinent History Respiratory: No Pertinent History Gastrointestinal: Appendectomy, Cholecystectomy Genitourinary: No Pertinent History Musculoskeletal: No Pertinent History Female Surgical History: Tubal Ligation - Social History Smoking Status: Never smoker Exposure to second hand smoke: No Drug Use: none Patient Lives Alone: No <MARCOSRIGOSUSAN - Last Filed: 10/05/21 18:34> - Physical Exam General Appearance: no apparent distress, alert Eye Exam: PERRL/EOMI, eyes nml inspection Ears, Nose, Throat Exam: normal ENT inspection, TMs normal, pharynx normal, mois t mucous membranes Neck Exam: normal inspection, non-tender, supple, full range of motion Respiratory Exam: normal breath sounds, lungs clear, No respiratory distress Cardiovascular Exam: regular rate/rhythm, normal heart sounds, normal peripheral pulses Gastrointestinal/Abdomen Exam: soft, normal bowel sounds, No tenderness, No mass Back Exam: normal inspection, normal range of motion, No CVA tenderness, No vertebral tenderness Extremity Exam: normal inspection, normal range of motion, pelvis stable Neurologic Exam: alert, oriented x 3, cooperative, normal mood/affect, nml cerebellar function, nml station & gait, sensation nml, No motor deficits Skin Exam: normal color, warm, dry, No rash Lymphatic Exam: No adenopathy SpO2: 98 <SUSAN DELA CRUZ - Last Filed: 10/05/21 18:34> - Nursing Vital Signs Nursing Vital Signs: Initial Vital Signs Temperature 97.8 F 10/05/21 17:02 Pulse Rate 85 10/05/21 17:02 Respiratory Rate 18 10/05/21 17:02 Blood Pressure 175/102 10/05/21 17:02 O2 Sat by Pulse Oximetry 91 L 10/05/21 17:02 Pain Scale Pain Intensity 0 - Course Nursing assessment & vital signs reviewed: Yes EKG Interpreted by Me: RATE (75), Sinus Rhythm, NORMAL AXIS, NORMAL INTERVALS, Non-specific ST Changes - Radiology Exams Chest X-ray Interpretation: Interpreted by me, Negative <SUSAN DELA CRUZ - Last Filed: 10/05/21 18:34> - Course Nursing assessment & vital signs reviewed: Yes <BILL BANKS - Last Filed: 10/05/21 21:26> Ordered Tests: Active Orders 24 hr Category Date Time Status EKG-ER Only STAT Care 10/05/21 17:24 Active IV Insertion STAT Care 10/05/21 17:24 Active CHEST 1 VIEW (PORTABLE) Stat Exams 10/05/21 17:24 Completed CBC W DIFF Stat Lab 10/05/21 18:00 Completed CMP Stat Lab 10/05/21 17:24 Completed CULTURE,URINE Stat Lab 10/05/21 17:34 Received ETHYL ALCOHOL Stat Lab 10/05/21 17:24 Completed Lactic Acid Urgent Lab 10/05/21 17:46 Completed MAGNESIUM Stat Lab 10/05/21 17:24 Completed POCT GLUCOSE Stat Lab 10/05/21 18:23 Received POCT GLUCOSE Stat Lab 10/05/21 19:25 Completed POCT GLUCOSE Stat Lab 10/05/21 20:42 Completed UA W/RFX CULTURE Stat Lab 10/05/21 17:34 Completed VENOUS BLOOD GAS Urgent Lab 10/05/21 17:46 Completed Medication Summary Generic Name Dose Route Start Last Admin Trade Name Freq PRN Reason Stop Dose Admin Insulin Human Regular 100 unit 100 mls @ 11 mls/hr 10/05/21 17:32 10/05/21 18:04 / Sodium Chloride IV 11/04/21 17:31 11 unit/hr .Q9H6M PRN 11 mls/hr DKA/HYPERGLYCEMIA Administration Protocol 11 UNIT/HR Discontinued Medications Generic Name Dose Route Start Last Admin Trade Name Chinmay PRN Reason Stop Dose Admin Sodium Chloride 1,000 mls @ 999 mls/hr 10/05/21 17:24 10/05/21 19:11 Sodium Chloride 0.9% 1000 Ml IV 10/05/21 18:24 Infused .Q1H1M STA Infusion Sodium Chloride Confirm 10/05/21 17:39 Sodium Chloride 0.9% 1000 Ml Administered 10/05/21 17:40 Dose 1,000 mls @ ud .ROUTE .STK-MED ONE Sodium Chloride Confirm 10/05/21 17:57 Sodium Chloride 0.9% 100 Ml Bag Administered 10/05/21 17:58 Dose 100 mls @ ud .ROUTE .STK-MED ONE Insulin Human Regular 10 unit 10/05/21 17:24 10/05/21 17:40 Insulin Regular, Human 1 Unit SQ 10/05/21 17:25 10 unit STAT ONE Administration Insulin Human Regular Confirm 10/05/21 17:39 Insulin Regular, Human 1 Unit Administered 10/05/21 17:40 Dose 10 unit .ROUTE .STK-MED ONE Insulin Human Regular Confirm 10/05/21 17:57 Insulin Regular, Human 1 Unit Administered 10/05/21 17:58 Dose 100 unit .ROUTE .STK-MED ONE Lab/Rad Data: Laboratory Result Diagrams 10/05/21 18:00 10/05/21 17:24 Laboratory Results 10/05/21 10/05/21 10/05/21 Range/Units 20:42 19:25 18:00 WBC (4.0-10.5) K/mm3 RBC (4.1-5.4) M/mm3 Hgb (12.0-16.0) gm/dl Hct (35-47) % MCV (78-100) fl MCH (26-32) pg MCHC (32-36) g/dl RDW (11.5-14.0) % Plt Count (150-450) K/mm3 MPV (7.5-11.0) fl Gran % (36.0-66.0) % Eos # (Auto) (0-0.5) Absolute Lymphs (auto) (1.0-4.6) Absolute Monos (auto) (0.0-1.3) Lymphocytes % (24.0-44.0) % Monocytes % (0.0-12.0) % Eosinophils % (0.00-5.0) % Basophils % (0.0-0.4) % Absolute Granulocytes (1.4-6.9) Basophils # (0-0.4) pO2/FiO2 Ratio % VBG pH (7.32-7.42) VBG pCO2 at Pat Temp (42-55) mm/Hg VBG pO2 at Pat Temp (25-40) mm/Hg VBG HCO3 (22-28) meq/L VBG O2 Sat (Ana) (95-100) VBG Base Excess (-2.0-2.0) VBG Hemoglobin VBG Carboxyhemoglobin (0.0-6.9) % T HGB POC Potassium (3.5-5.1) Sodium (137-145) mmol/L Potassium (3.5-5.1) mmol/L Chloride (98-107) mmol/L Carbon Dioxide (22-30) mmol/L Anion Gap (5-15) MEQ/L BUN (7-17) mg/dL Creatinine (0.52-1.04) mg/dL Estimated GFR ML/MIN Glucose (74-106) mg/dL POC Glucometer 237 H 589 H* (50 to 500) mg/dL Lactic Acid (0.4-2.0) Calcium (8.4-10.2) mg/dL Magnesium (1.6-2.3) mg/dL Total Bilirubin (0.2-1.3) mg/dL AST (14-36) U/L ALT (0-35) U/L Alkaline Phosphatase (38-126) U/L Serum Total Protein (6.3-8.2) g/dL Albumin (3.5-5.0) g/dL Urinalys Dipstick Clnc Urine Color (YELLOW) Urine Appearance (CLEAR) Urine pH (5-6) Ur Specific Tully (1.005-1.025) POC Urine Protein Conf (Negative) Urine Ketones (NEGATIVE) Urine Nitrite (NEGATIVE) Urine Bilirubin (NEGATIVE) Urine Urobilinogen (0-1) mg/dL Urine Leukocytes (NEGATIVE) Urine WBC (Auto) (0-5) /HPF Urine RBC (Auto) (0-2) /HPF U Epithel Cells (Auto) (FEW) /HPF Urine Bacteria (Auto) (NEGATIVE) /HPF Urine RBC (0-5) Vaibhav/ul Ur Culture Indicated? Urine Glucose (NEGATIVE) mg/dL Ethyl Alcohol (0-10) mg/dL Influenza Type A Ag NEGATIVE (NEGATIVE) Influenza Type B Ag NEGATIVE (NEGATIVE) RSV (PCR) NEGATIVE (Negative) SARS-CoV-2 (PCR) NEGATIVE (NEGATIVE) Group A Strep Antibody (NEGATIVE) 10/05/21 10/05/21 10/05/21 Range/Units 18:00 18:00 17:46 WBC 4.8 (4.0-10.5) K/mm3 RBC 4.40 (4.1-5.4) M/mm3 Hgb 13.9 (12.0-16.0) gm/dl Hct 41.9 (35-47) % MCV 95.2 (78-100) fl MCH 31.6 (26-32) pg MCHC 33.2 (32-36) g/dl RDW 13.9 (11.5-14.0) % Plt Count 124 L (150-450) K/mm3 MPV 12.5 H (7.5-11.0) fl Gran % 59.8 (36.0-66.0) % Eos # (Auto) 0.23 (0-0.5) Absolute Lymphs (auto) 1.25 (1.0-4.6) Absolute Monos (auto) 0.43 (0.0-1.3) Lymphocytes % 25.9 (24.0-44.0) % Monocytes % 8.9 (0.0-12.0) % Eosinophils % 4.8 (0.00-5.0) % Basophils % 0.6 (0.0-0.4) % Absolute Granulocytes 2.88 (1.4-6.9) Basophils # 0.03 (0-0.4) pO2/FiO2 Ratio 21.0 % VBG pH 7.49 H (7.32-7.42) VBG pCO2 at Pat Temp 33 L (42-55) mm/Hg VBG pO2 at Pat Temp 64 H (25-40) mm/Hg VBG HCO3 25.1 (22-28) meq/L VBG O2 Sat (Ana) 95.7 (95-100) VBG Base Excess 2.2 H (-2.0-2.0) VBG Hemoglobin 14.2 VBG Carboxyhemoglobin 5.1 (0.0-6.9) % T HGB POC Potassium 5.4 H (3.5-5.1) Sodium (137-145) mmol/L Potassium (3.5-5.1) mmol/L Chloride (98-107) mmol/L Carbon Dioxide (22-30) mmol/L Anion Gap (5-15) MEQ/L BUN (7-17) mg/dL Creatinine (0.52-1.04) mg/dL Estimated GFR ML/MIN Glucose (74-106) mg/dL POC Glucometer (50 to 500) mg/dL Lactic Acid (0.4-2.0) Calcium (8.4-10.2) mg/dL Magnesium (1.6-2.3) mg/dL Total Bilirubin (0.2-1.3) mg/dL AST (14-36) U/L ALT (0-35) U/L Alkaline Phosphatase (38-126) U/L Serum Total Protein (6.3-8.2) g/dL Albumin (3.5-5.0) g/dL Urinalys Dipstick Clnc Urine Color (YELLOW) Urine Appearance (CLEAR) Urine pH (5-6) Ur Specific Tully (1.005-1.025) POC Urine Protein Conf (Negative) Urine Ketones (NEGATIVE) Urine Nitrite (NEGATIVE) Urine Bilirubin (NEGATIVE) Urine Urobilinogen (0-1) mg/dL Urine Leukocytes (NEGATIVE) Urine WBC (Auto) (0-5) /HPF Urine RBC (Auto) (0-2) /HPF U Epithel Cells (Auto) (FEW) /HPF Urine Bacteria (Auto) (NEGATIVE) /HPF Urine RBC (0-5) Vaibhav/ul Ur Culture Indicated? Urine Glucose (NEGATIVE) mg/dL Ethyl Alcohol (0-10) mg/dL Influenza Type A Ag (NEGATIVE) Influenza Type B Ag (NEGATIVE) RSV (PCR) (Negative) SARS-CoV-2 (PCR) (NEGATIVE) Group A Strep Antibody NEGATIVE (NEGATIVE) 10/05/21 10/05/21 10/05/21 Range/Units 17:46 17:34 17:24 WBC (4.0-10.5) K/mm3 RBC (4.1-5.4) M/mm3 Hgb (12.0-16.0) gm/dl Hct (35-47) % MCV (78-100) fl MCH (26-32) pg MCHC (32-36) g/dl RDW (11.5-14.0) % Plt Count (150-450) K/mm3 MPV (7.5-11.0) fl Gran % (36.0-66.0) % Eos # (Auto) (0-0.5) Absolute Lymphs (auto) (1.0-4.6) Absolute Monos (auto) (0.0-1.3) Lymphocytes % (24.0-44.0) % Monocytes % (0.0-12.0) % Eosinophils % (0.00-5.0) % Basophils % (0.0-0.4) % Absolute Granulocytes (1.4-6.9) Basophils # (0-0.4) pO2/FiO2 Ratio % VBG pH (7.32-7.42) VBG pCO2 at Pat Temp (42-55) mm/Hg VBG pO2 at Pat Temp (25-40) mm/Hg VBG HCO3 (22-28) meq/L VBG O2 Sat (Ana) (95-100) VBG Base Excess (-2.0-2.0) VBG Hemoglobin VBG Carboxyhemoglobin (0.0-6.9) % T HGB POC Potassium (3.5-5.1) Sodium 127 L (137-145) mmol/L Potassium 5.2 H (3.5-5.1) mmol/L Chloride 92 L (98-107) mmol/L Carbon Dioxide 24 (22-30) mmol/L Anion Gap 16.1 H (5-15) MEQ/L BUN 40 H (7-17) mg/dL Creatinine 1.34 H (0.52-1.04) mg/dL Estimated GFR 43.2 ML/MIN Glucose 796 H* (74-106) mg/dL POC Glucometer (50 to 500) mg/dL Lactic Acid 1.1 (0.4-2.0) Calcium 9.9 (8.4-10.2) mg/dL Magnesium 1.9 (1.6-2.3) mg/dL Total Bilirubin 1.10 (0.2-1.3) mg/dL AST 20 (14-36) U/L ALT 18 (0-35) U/L Alkaline Phosphatase 107 (38-126) U/L Serum Total Protein 6.5 (6.3-8.2) g/dL Albumin 3.9 (3.5-5.0) g/dL Urinalys Dipstick Clnc MAIN LAB Urine Color YELLOW (YELLOW) Urine Appearance CLEAR (CLEAR) Urine pH 6.0 (5-6) Ur Specific Tully 1.010 (1.005-1.025) POC Urine Protein Conf NEGATIVE (Negative) Urine Ketones NEGATIVE (NEGATIVE) Urine Nitrite NEGATIVE (NEGATIVE) Urine Bilirubin NEGATIVE (NEGATIVE) Urine Urobilinogen 0.2 (0-1) mg/dL Urine Leukocytes TRACE (NEGATIVE) Urine WBC (Auto) 6-10 (0-5) /HPF Urine RBC (Auto) 3-5 (0-2) /HPF U Epithel Cells (Auto) RARE (FEW) /HPF Urine Bacteria (Auto) RARE (NEGATIVE) /HPF Urine RBC TRACE-INTACT (0-5) Vaibhav/ul Ur Culture Indicated? YES Urine Glucose >=1000 (NEGATIVE) mg/dL Ethyl Alcohol < 10 (0-10) mg/dL Influenza Type A Ag (NEGATIVE) Influenza Type B Ag (NEGATIVE) RSV (PCR) (Negative) SARS-CoV-2 (PCR) (NEGATIVE) Group A Strep Antibody (NEGATIVE) - Progress Progress: improved <SUSAN DELA CRUZ - Last Filed: 10/05/21 18:34> - Progress Progress: improved Discussed with : Harshal Will see patient in: hospital (observation) Counseled pt/family regarding: lab results, diagnosis, need for follow-up, rad results <BILL BANKS - Last Filed: 10/05/21 21:26> - Progress Progress Note: 10/05/21 19:[address] Dela Cruz at change of shift after discussion of pending labs and dispo potential of new diabetes not responding well to outpt. Tx Normal neuro; No CP or SOBreath. Abd nontender . no pain. no other findings on exam/ROS. 10/05/21 21:17 Discussed with pt and Dr. Sandhu and she and family prefer to stay here , will obs in ICU - glucose is down to 250s on drip now. (BILL BANKS) - Departure Departure Disposition: Observation Critical Care Time: Yes Critical Care Time(excluding separately billable procedures): Critical 30-74 mins <SUSAN DELA CRUZ - Last Filed: 10/05/21 18:34> - Departure Departure Disposition: Observation <BILL BANKS - Last Filed: 10/05/21 21:26> - Departure Clinical Impression: Hyperglycemia, Uncontrolled diabetes mellitus, multiple electrolyte abnormalities and d, UTI (urinary tract infection) Condition: Critical Referrals: ASHVIN RUELAS MD [Primary Care Provider] - Follow up/PCP as directed
[2021-10-05 19:00] LABS: INFLUENZA A NEGATIVE (NEGATIVE); INFLUENZA B NEGATIVE (NEGATIVE); RESPIRATORY SYNCTIAL VIRUS NEGATIVE (Negative); SARS-CoV-2 Xpert Express NEGATIVE (NEGATIVE)
--- NOTE | 2021-10-05 20:15 | XRAY ---
Indication: High blood sugar. Comparison: None Portable chest is clear. Heart not enlarged for AP portable technique. Bony thorax intact with mild degenerative changes. Impression: Nonacute chest.
[2021-10-05 22:51] LABS: VBG BASE EXCESS 0.6 (-2.0-2.0); VBG HCO3- 26.6 meq/L (22-28); VBG HEMOGLOBIN 13.1; VBG O2 SATURATION 81.9 (95-100); VBG POTASSIUM 4.9 (3.5-5.1); VBG pH 7.36 (7.32-7.42)
[2021-10-06] MEDS ORDERED: MORPHINE SULFATE 2 MG INJ IV PRN (00:13)
[2021-10-06] MEDS ORDERED: Zofran 4 MG/2 ML VIAL IV PRN (00:13)
[2021-10-06] MEDS ORDERED: TYLENOL 325 MG PO PRN (00:13)
[2021-10-06] MEDS: Sodium Chloride 0.9% 1000 ML 1,000 ML IV SCH ×2 (00:26→11:31)
[2021-10-06 01:27] LABS: ANION GAP 12.1 MEQ/L (5-15); Calcium 8.7 mg/dL (8.4-10.2); Creatinine 1 1.47 mg/dL (0.52-1.04); EST GLOMERULAR FILTRATION RATE 38.8 ML/MIN; Potassium 4.1 mmol/L (3.5-5.1)
[2021-10-06] MEDS: HUMULIN R SQ PRN ×4 (01:59→11:25)
[2021-10-06 05:31] LABS: Lactic Acid 0.9 (0.4-2.0); VBG BASE EXCESS 1.6 (-2.0-2.0); VBG CARBOXYHEMOGLOBIN 3.3 % T HGB (0.0-6.9); VBG HCO3- 28.9 meq/L (22-28); VBG O2 SATURATION 53.3 (95-100); VBG POTASSIUM 4.9 (3.5-5.1); VBG pH 7.32 (7.32-7.42)
[2021-10-06 06:28] LABS: Absolute Neutrophil Ct (ANC) 2.84 (1.4-6.9); Basophil (Absolute #) 0.05 (0-0.4); Hematocrit 39.6 % (35-47); Hemoglobin 12.9 gm/dl (12.0-16.0); Lymphocyte (Absolute #) 2.27 (1.0-4.6); Lymphocytes % 37.9 % (24.0-44.0); Mean Cell Volume 95.9 fl (78-100); Mean Corpuscular Hemoglobin 31.2 pg (26-32); Mean Corpuscular Hgb Concent. 32.6 g/dl (32-36); Mean Platelet Volume 12.7 fl (7.5-11.0); Monocyte (Absolute #) 0.53 (0.0-1.3); Monocytes % 8.8 % (0.0-12.0); Neutrophil % 47.5 % (36.0-66.0); Platelet Count 135 K/mm3 (150-450); Red Blood Count 4.13 M/mm3 (4.1-5.4); Red Cell Distribution Width 14.4 % (11.5-14.0)
[2021-10-06 06:36] LABS: ALBUMIN 3.4 g/dL (3.5-5.0); ANION GAP 10.2 MEQ/L (5-15); BILIRUBIN,TOTAL 0.7 mg/dL (0.2-1.3); Calcium 8.8 mg/dL (8.4-10.2); Creatinine 1 1.53 mg/dL (0.52-1.04); EST GLOMERULAR FILTRATION RATE 37.1 ML/MIN; Potassium 4.6 mmol/L (3.5-5.1); Total Protein 6.1 g/dL (6.3-8.2)
[2021-10-06] MEDS ORDERED: xanAX 0.5 MG PO PRN (09:50)
[2021-10-06] MEDS ORDERED: HYDROCODONE-ACETAMIN 10-325 MG PO SCH (10:00)
[2021-10-06] MEDS ORDERED: Glucophage 500 MG PO SCH (10:00)
[2021-10-06] MEDS ORDERED: Zestril 20 MG PO SCH (10:00)
[2021-10-06] MEDS ORDERED: Zanaflex 4 MG PO SCH (10:00)
[2021-10-06] MEDS ORDERED: Neurontin 400 MG PO SCH (10:00)
[2021-10-06] MEDS ORDERED: ROCEPHIN 1 Gm-D5w 50 ml Bag** 1 G/50 ML IVPB IV SCH ×2 (10:00→22:00)
[2021-10-06] MEDS ORDERED: NON-FORMULARY ITEM PO SCH (10:00)
[2021-10-06] MEDS ORDERED: PROPRANOLOL HCL 160 MG PO SCH (10:00)
[2021-10-06] MEDS ORDERED: NON-FORMULARY ITEM (Tizanidine Hcl [Tizanidine Hcl] 2 MG Capsule) PO SCH (10:00)
--- NOTE | 2021-10-06 11:06 | PCM.HP ---
History of Present Illness - Chief Complaint Chief Complaint: Uncontrolled diabetes History of Present Illness: is a 56 year old female.who presents with a blood sugar which is "high". She measured it on a newly acquired glucometer. She was seen in the ER on Thursday of this week with a blood sugar greater than 800 was diagnosed with UTI and was put on metformin which she has not been taking as prescribed. She seems somewhat altered. We find her blood sugar to be higher than our POC glucometer as well. - Review of Systems Constitutional: No Fever, No Chills Eyes: No Symptoms Ears, Nose, & Throat: No Symptoms Respiratory: No Cough, No Short Of Breath Cardiac: No Chest Pain, No Edema, No Syncope Abdominal/Gastrointestinal: No Abdominal Pain, No Nausea, No Vomiting, No Diarrhea Genitourinary Symptoms: No Dysuria Musculoskeletal: No Back Pain, No Neck Pain Skin: No Rash Neurological: No Dizziness, No Focal Weakness, No Sensory Changes Psychological: No Symptoms Endocrine: No Symptoms Hematologic/Lymphatic: No Symptoms Immunological/Allergic: No Symptoms Medications & Allergies Home Medications: Home Medication List ALPRAZolam [Alprazolam] 0.5 mg PO Q8H PRN PRN 12/24/20 [History Confirmed 10/05/21] lisinopriL [Lisinopril] 20 mg PO BID 12/24/20 [History Confirmed 10/06/21] Amlodipine Besylate 5 mg [Norvasc 5 mg] 10 mg PO HS 10/01/21 [History Confirmed 10/05/21] Gabapentin 400 mg [Neurontin 400 MG] 1 tab PO TID 10/01/21 [History Confirmed 10/05/21] Hydrocodone/Acetaminophen [Hydrocodone-Acetamin 10-325 mg] 1 tab PO QID 10/01/21 [History Confirmed 10/05/21] Propranolol HCl [Propranolol HCl ER] 160 mg PO DAILY 10/01/21 [History Confirmed 10/06/21] Tizanidine HCl 2 mg PO BID 10/01/21 [History Confirmed 10/06/21] Metformin HCl 500 mg [Glucophage 500 MG] 500 mg PO DAILY 10/06/21 [History Confirmed 10/06/21] Allergies/Adverse Reactions: Allergies Allergy/AdvReac Type Severity Reaction Status Date / Time Sulfa (Sulfonamide Allergy Intermediate Hives Verified 10/06/21 01:28 Antibiotics) - Past Medical History Past Medical History: Yes Neurological History: Migraines ENT History: No Pertinent History Cardiac History: Hypertension Respiratory History: No Pertinent History Endocrine Medical History: Diabetes Type II Musculoskelatal History: No Pertinent History GI Medical History: Gallbladder Disease History: No Pertinent History Pyscho-Social History: Anxiety, Depression Reproductive Disorders: No Pertinent History Comment: uti 2021 - Female History Are you now?: No - Past Surgical History Past Surgical History: Yes Neuro Surgical History: No Pertinent History Cardiac History: No Pertinent History Respiratory Surgery: No Pertinent History GI Surgical History: Appendectomy, Cholecystectomy Genitourinary Surgical Hx: No Pertinent History Musculskeletal Surgical Hx: No Pertinent History Female Surgical History: Tubal Ligation - Social History Smoking Status: Never smoker Exposure to second hand smoke: No Alcohol: Rarely Drug Use: none - Physical Exam Vital Signs: Vital Signs - 24 hr Temp Pulse Resp BP BP Pulse Ox 10/06/21 07:55 98.0 F 66 18 160/97 99 10/06/21 07:46 63 10/06/21 04:00 97.3 F 64 17 119/77 96 10/06/21 01:11 97.3 F 68 16 137/77 93 L 10/06/21 01:00 93 L 10/06/21 00:35 65 18 101/64 98 10/06/21 00:00 63 16 93/57 98 10/05/21 23:38 62 18 88/50 95 10/05/21 22:30 64 18 73/44 98 10/05/21 20:00 81 18 121/87 97 10/05/21 19:14 70 20 144/90 98 10/05/21 18:41 98 10/05/21 18:12 78 18 130/84 98 10/05/21 17:02 97.8 F 85 18 175/102 91 L General Appearance: no apparent distress, alert Neurologic Exam: alert, oriented x 3, cooperative, normal mood/affect, nml cerebellar function, nml station & gait, sensation nml, No motor deficits Eye Exam: PERRL/EOMI, eyes nml inspection Ears, Nose, Throat Exam: normal ENT inspection, TMs normal, pharynx normal, moist mucous membranes Neck Exam: normal inspection, non-tender, supple, full range of motion Respiratory Exam: normal breath sounds, lungs clear, No respiratory distress Cardiovascular Exam: regular rate/rhythm, normal heart sounds, normal peripheral pulses Gastrointestinal/Abdomen Exam: soft, normal bowel sounds, No tenderness, No mass Back Exam: normal inspection, normal range of motion, No CVA tenderness, No vertebral tenderness Extremity Exam: normal inspection, normal range of motion, pelvis stable Skin Exam: normal color, warm, dry, No rash Lymphatic Exam: No adenopathy Results - Labs Lab/Micro Results: Lab Results-Last 24 Hours 10/05/21 10/05/21 10/05/21 Range/Units 17:24 17:34 17:46 WBC (4.0-10.5) K/mm3 RBC (4.1-5.4) M/mm3 Hgb (12.0-16.0) gm/dl Hct (35-47) % MCV (78-100) fl MCH (26-32) pg MCHC (32-36) g/dl RDW (11.5-14.0) % Plt Count (150-450) K/mm3 MPV (7.5-11.0) fl Gran % (36.0-66.0) % Eos # (Auto) (0-0.5) Absolute Lymphs (auto) (1.0-4.6) Absolute Monos (auto) (0.0-1.3) Lymphocytes % (24.0-44.0) % Monocytes % (0.0-12.0) % Eosinophils % (0.00-5.0) % Basophils % (0.0-0.4) % Absolute Granulocytes (1.4-6.9) Basophils # (0-0.4) pO2/FiO2 Ratio % VBG pH (7.32-7.42) VBG pCO2 at Pat Temp (42-55) mm/Hg VBG pO2 at Pat Temp (25-40) mm/Hg VBG HCO3 (22-28) meq/L VBG O2 Sat (Ana) (95-100) VBG Base Excess (-2.0-2.0) VBG Hemoglobin VBG Carboxyhemoglobin (0.0-6.9) % T HGB POC Potassium (3.5-5.1) Sodium 127 L (137-145) mmol/L Potassium 5.2 H (3.5-5.1) mmol/L Chloride 92 L (98-107) mmol/L Carbon Dioxide 24 (22-30) mmol/L Anion Gap 16.1 H (5-15) MEQ/L BUN 40 H (7-17) mg/dL Creatinine 1.34 H (0.52-1.04) mg/dL Estimated GFR 43.2 ML/MIN Glucose 796 H* (74-106) mg/dL POC Glucometer (50 to 500) mg/dL Lactic Acid 1.1 (0.4-2.0) Calcium 9.9 (8.4-10.2) mg/dL Magnesium 1.9 (1.6-2.3) mg/dL Total Bilirubin 1.10 (0.2-1.3) mg/dL AST 20 (14-36) U/L ALT 18 (0-35) U/L Alkaline Phosphatase 107 (38-126) U/L Serum Total Protein 6.5 (6.3-8.2) g/dL Albumin 3.9 (3.5-5.0) g/dL Urinalys Dipstick Clnc MAIN LAB Urine Color YELLOW (YELLOW) Urine Appearance CLEAR (CLEAR) Urine pH 6.0 (5-6) Ur Specific [place] 1.010 (1.005-1.025) POC Urine Protein Conf NEGATIVE (Negative) Urine Ketones NEGATIVE (NEGATIVE) Urine Nitrite NEGATIVE (NEGATIVE) Urine Bilirubin NEGATIVE (NEGATIVE) Urine Urobilinogen 0.2 (0-1) mg/dL Urine Leukocytes TRACE (NEGATIVE) Urine WBC (Auto) 6-10 (0-5) /HPF Urine RBC (Auto) 3-5 (0-2) /HPF U Epithel Cells (Auto) RARE (FEW) /HPF Urine Bacteria (Auto) RARE (NEGATIVE) /HPF Urine RBC TRACE-INTACT (0-5) Vaibhav/ul Ur Culture Indicated? YES Urine Glucose >=1000 (NEGATIVE) mg/dL Ethyl Alcohol < 10 (0-10) mg/dL Influenza Type A Ag (NEGATIVE) Influenza Type B Ag (NEGATIVE) RSV (PCR) (Negative) SARS-CoV-2 (PCR) (NEGATIVE) Group A Strep Antibody (NEGATIVE) 10/05/21 10/05/21 10/05/21 Range/Units 17:46 18:00 18:00 WBC 4.8 (4.0-10.5) K/mm3 RBC 4.40 (4.1-5.4) M/mm3 Hgb 13.9 (12.0-16.0) gm/dl Hct 41.9 (35-47) % MCV 95.2 (78-100) fl MCH 31.6 (26-32) pg MCHC 33.2 (32-36) g/dl RDW 13.9 (11.5-14.0) % Plt Count 124 L (150-450) K/mm3 MPV 12.5 H (7.5-11.0) fl Gran % 59.8 (36.0-66.0) % Eos # (Auto) 0.23 (0-0.5) Absolute Lymphs (auto) 1.25 (1.0-4.6) Absolute Monos (auto) 0.43 (0.0-1.3) Lymphocytes % 25.9 (24.0-44.0) % Monocytes % 8.9 (0.0-12.0) % Eosinophils % 4.8 (0.00-5.0) % Basophils % 0.6 (0.0-0.4) % Absolute Granulocytes 2.88 (1.4-6.9) Basophils # 0.03 (0-0.4) pO2/FiO2 Ratio 21.0 % VBG pH 7.49 H (7.32-7.42) VBG pCO2 at Pat Temp 33 L (42-55) mm/Hg VBG pO2 at Pat Temp 64 H (25-40) mm/Hg VBG HCO3 25.1 (22-28) meq/L VBG O2 Sat (Ana) 95.7 (95-100) VBG Base Excess 2.2 H (-2.0-2.0) VBG Hemoglobin 14.2 VBG Carboxyhemoglobin 5.1 (0.0-6.9) % T HGB POC Potassium 5.4 H (3.5-5.1) Sodium (137-145) mmol/L Potassium (3.5-5.1) mmol/L Chloride (98-107) mmol/L Carbon Dioxide (22-30) mmol/L Anion Gap (5-15) MEQ/L BUN (7-17) mg/dL Creatinine (0.52-1.04) mg/dL Estimated GFR ML/MIN Glucose (74-106) mg/dL POC Glucometer (50 to 500) mg/dL Lactic Acid (0.4-2.0) Calcium (8.4-10.2) mg/dL Magnesium (1.6-2.3) mg/dL Total Bilirubin (0.2-1.3) mg/dL AST (14-36) U/L ALT (0-35) U/L Alkaline Phosphatase (38-126) U/L Serum Total Protein (6.3-8.2) g/dL Albumin (3.5-5.0) g/dL Urinalys Dipstick Clnc Urine Color (YELLOW) Urine Appearance (CLEAR) Urine pH (5-6) Ur Specific [place] (1.005-1.025) POC Urine Protein Conf (Negative) Urine Ketones (NEGATIVE) Urine Nitrite (NEGATIVE) Urine Bilirubin (NEGATIVE) Urine Urobilinogen (0-1) mg/dL Urine Leukocytes (NEGATIVE) Urine WBC (Auto) (0-5) /HPF Urine RBC (Auto) (0-2) /HPF U Epithel Cells (Auto) (FEW) /HPF Urine Bacteria (Auto) (NEGATIVE) /HPF Urine RBC (0-5) Vaibhav/ul Ur Culture Indicated? Urine Glucose (NEGATIVE) mg/dL Ethyl Alcohol (0-10) mg/dL Influenza Type A Ag (NEGATIVE) Influenza Type B Ag (NEGATIVE) RSV (PCR) (Negative) SARS-CoV-2 (PCR) (NEGATIVE) Group A Strep Antibody NEGATIVE (NEGATIVE) 10/05/21 10/05/21 10/05/21 Range/Units 18:00 19:25 20:42 WBC (4.0-10.5) K/mm3 RBC (4.1-5.4) M/mm3 Hgb (12.0-16.0) gm/dl Hct (35-47) % MCV (78-100) fl MCH (26-32) pg MCHC (32-36) g/dl RDW (11.5-14.0) % Plt Count (150-450) K/mm3 MPV (7.5-11.0) fl Gran % (36.0-66.0) % Eos # (Auto) (0-0.5) Absolute Lymphs (auto) (1.0-4.6) Absolute Monos (auto) (0.0-1.3) Lymphocytes % (24.0-44.0) % Monocytes % (0.0-12.0) % Eosinophils % (0.00-5.0) % Basophils % (0.0-0.4) % Absolute Granulocytes (1.4-6.9) Basophils # (0-0.4) pO2/FiO2 Ratio % VBG pH (7.32-7.42) VBG pCO2 at Pat Temp (42-55) mm/Hg VBG pO2 at Pat Temp (25-40) mm/Hg VBG HCO3 (22-28) meq/L VBG O2 Sat (Ana) (95-100) VBG Base Excess (-2.0-2.0) VBG Hemoglobin VBG Carboxyhemoglobin (0.0-6.9) % T HGB POC Potassium (3.5-5.1) Sodium (137-145) mmol/L Potassium (3.5-5.1) mmol/L Chloride (98-107) mmol/L Carbon Dioxide (22-30) mmol/L Anion Gap (5-15) MEQ/L BUN (7-17) mg/dL Creatinine (0.52-1.04) mg/dL Estimated GFR ML/MIN Glucose (74-106) mg/dL POC Glucometer 589 H* 237 H (50 to 500) mg/dL Lactic Acid (0.4-2.0) Calcium (8.4-10.2) mg/dL Magnesium (1.6-2.3) mg/dL Total Bilirubin (0.2-1.3) mg/dL AST (14-36) U/L ALT (0-35) U/L Alkaline Phosphatase (38-126) U/L Serum Total Protein (6.3-8.2) g/dL Albumin (3.5-5.0) g/dL Urinalys Dipstick Clnc Urine Color (YELLOW) Urine Appearance (CLEAR) Urine pH (5-6) Ur Specific [place] (1.005-1.025) POC Urine Protein Conf (Negative) Urine Ketones (NEGATIVE) Urine Nitrite (NEGATIVE) Urine Bilirubin (NEGATIVE) Urine Urobilinogen (0-1) mg/dL Urine Leukocytes (NEGATIVE) Urine WBC (Auto) (0-5) /HPF Urine RBC (Auto) (0-2) /HPF U Epithel Cells (Auto) (FEW) /HPF Urine Bacteria (Auto) (NEGATIVE) /HPF Urine RBC (0-5) Vaihbav/ul Ur Culture Indicated? Urine Glucose (NEGATIVE) mg/dL Ethyl Alcohol (0-10) mg/dL Influenza Type A Ag NEGATIVE (NEGATIVE) Influenza Type B Ag NEGATIVE (NEGATIVE) RSV (PCR) NEGATIVE (Negative) SARS-CoV-2 (PCR) NEGATIVE (NEGATIVE) Group A Strep Antibody (NEGATIVE) 10/05/21 10/05/21 10/05/21 Range/Units 21:32 22:49 23:26 WBC (4.0-10.5) K/mm3 RBC (4.1-5.4) M/mm3 Hgb (12.0-16.0) gm/dl Hct (35-47) % MCV (78-100) fl MCH (26-32) pg MCHC (32-36) g/dl RDW (11.5-14.0) % Plt Count (150-450) K/mm3 MPV (7.5-11.0) fl Gran % (36.0-66.0) % Eos # (Auto) (0-0.5) Absolute Lymphs (auto) (1.0-4.6) Absolute Monos (auto) (0.0-1.3) Lymphocytes % (24.0-44.0) % Monocytes % (0.0-12.0) % Eosinophils % (0.00-5.0) % Basophils % (0.0-0.4) % Absolute Granulocytes (1.4-6.9) Basophils # (0-0.4) pO2/FiO2 Ratio 28.0 % VBG pH 7.36 (7.32-7.42) VBG pCO2 at Pat Temp 47 (42-55) mm/Hg VBG pO2 at Pat Temp 44 H (25-40) mm/Hg VBG HCO3 26.6 (22-28) meq/L VBG O2 Sat (Ana) 81.9 L (95-100) VBG Base Excess 0.6 (-2.0-2.0) VBG Hemoglobin 13.1 VBG Carboxyhemoglobin 3.0 (0.0-6.9) % T HGB POC Potassium 4.9 (3.5-5.1) Sodium (137-145) mmol/L Potassium (3.5-5.1) mmol/L Chloride (98-107) mmol/L Carbon Dioxide (22-30) mmol/L Anion Gap (5-15) MEQ/L BUN (7-17) mg/dL Creatinine (0.52-1.04) mg/dL Estimated GFR ML/MIN Glucose (74-106) mg/dL POC Glucometer 157 H 211 H (50 to 500) mg/dL Lactic Acid (0.4-2.0) Calcium (8.4-10.2) mg/dL Magnesium (1.6-2.3) mg/dL Total Bilirubin (0.2-1.3) mg/dL AST (14-36) U/L ALT (0-35) U/L Alkaline Phosphatase (38-126) U/L Serum Total Protein (6.3-8.2) g/dL Albumin (3.5-5.0) g/dL Urinalys Dipstick Clnc Urine Color (YELLOW) Urine Appearance (CLEAR) Urine pH (5-6) Ur Specific [place] (1.005-1.025) POC Urine Protein Conf (Negative) Urine Ketones (NEGATIVE) Urine Nitrite (NEGATIVE) Urine Bilirubin (NEGATIVE) Urine Urobilinogen (0-1) mg/dL Urine Leukocytes (NEGATIVE) Urine WBC (Auto) (0-5) /HPF Urine RBC (Auto) (0-2) /HPF U Epithel Cells (Auto) (FEW) /HPF Urine Bacteria (Auto) (NEGATIVE) /HPF Urine RBC (0-5) Vaibhav/ul Ur Culture Indicated? Urine Glucose (NEGATIVE) mg/dL Ethyl Alcohol (0-10) mg/dL Influenza Type A Ag (NEGATIVE) Influenza Type B Ag (NEGATIVE) RSV (PCR) (Negative) SARS-CoV-2 (PCR) (NEGATIVE) Group A Strep Antibody (NEGATIVE) 10/06/21 10/06/21 10/06/21 Range/Units 01:00 04:00 04:06 WBC (4.0-10.5) K/mm3 RBC (4.1-5.4) M/mm3 Hgb (12.0-16.0) gm/dl Hct (35-47) % MCV (78-100) fl MCH (26-32) pg MCHC (32-36) g/dl RDW (11.5-14.0) % Plt Count (150-450) K/mm3 MPV (7.5-11.0) fl Gran % (36.0-66.0) % Eos # (Auto) (0-0.5) Absolute Lymphs (auto) (1.0-4.6) Absolute Monos (auto) (0.0-1.3) Lymphocytes % (24.0-44.0) % Monocytes % (0.0-12.0) % Eosinophils % (0.00-5.0) % Basophils % (0.0-0.4) % Absolute Granulocytes (1.4-6.9) Basophils # (0-0.4) pO2/FiO2 Ratio 21.0 % VBG pH 7.32 (7.32-7.42) VBG pCO2 at Pat Temp 56 H (42-55) mm/Hg VBG pO2 at Pat Temp 24 L (25-40) mm/Hg VBG HCO3 28.9 H (22-28) meq/L VBG O2 Sat (Ana) 53.3 L (95-100) VBG Base Excess 1.6 (-2.0-2.0) VBG Hemoglobin 13.0 VBG Carboxyhemoglobin 3.3 (0.0-6.9) % T HGB POC Potassium 4.9 (3.5-5.1) Sodium 135 L D (137-145) mmol/L Potassium 4.1 D (3.5-5.1) mmol/L Chloride 102 (98-107) mmol/L Carbon Dioxide 24 (22-30) mmol/L Anion Gap 12.1 (5-15) MEQ/L BUN 35 H (7-17) mg/dL Creatinine 1.47 H (0.52-1.04) mg/dL Estimated GFR 38.8 ML/MIN Glucose 213 H (74-106) mg/dL POC Glucometer 268 H (50 to 500) mg/dL Lactic Acid 0.9 (0.4-2.0) Calcium 8.7 (8.4-10.2) mg/dL Magnesium (1.6-2.3) mg/dL Total Bilirubin (0.2-1.3) mg/dL AST (14-36) U/L ALT (0-35) U/L Alkaline Phosphatase (38-126) U/L Serum Total Protein (6.3-8.2) g/dL Albumin (3.5-5.0) g/dL Urinalys Dipstick Clnc Urine Color (YELLOW) Urine Appearance (CLEAR) Urine pH (5-6) Ur Specific [place] (1.005-1.025) POC Urine Protein Conf (Negative) Urine Ketones (NEGATIVE) Urine Nitrite (NEGATIVE) Urine Bilirubin (NEGATIVE) Urine Urobilinogen (0-1) mg/dL Urine Leukocytes (NEGATIVE) Urine WBC (Auto) (0-5) /HPF Urine RBC (Auto) (0-2) /HPF U Epithel Cells (Auto) (FEW) /HPF Urine Bacteria (Auto) (NEGATIVE) /HPF Urine RBC (0-5) Vaibhav/ul Ur Culture Indicated? Urine Glucose (NEGATIVE) mg/dL Ethyl Alcohol (0-10) mg/dL Influenza Type A Ag (NEGATIVE) Influenza Type B Ag (NEGATIVE) RSV (PCR) (Negative) SARS-CoV-2 (PCR) (NEGATIVE) Group A Strep Antibody (NEGATIVE) 10/06/21 10/06/21 10/06/21 Range/Units 05:15 05:15 07:14 WBC 6.0 (4.0-10.5) K/mm3 RBC 4.13 (4.1-5.4) M/mm3 Hgb 12.9 (12.0-16.0) gm/dl Hct 39.6 (35-47) % MCV 95.9 (78-100) fl MCH 31.2 (26-32) pg MCHC 32.6 (32-36) g/dl RDW 14.4 H (11.5-14.0) % Plt Count 135 L (150-450) K/mm3 MPV 12.7 H (7.5-11.0) fl Gran % 47.5 (36.0-66.0) % Eos # (Auto) 0.30 (0-0.5) Absolute Lymphs (auto) 2.27 (1.0-4.6) Absolute Monos (auto) 0.53 (0.0-1.3) Lymphocytes % 37.9 (24.0-44.0) % Monocytes % 8.8 (0.0-12.0) % Eosinophils % 5.0 (0.00-5.0) % Basophils % 0.8 (0.0-0.4) % Absolute Granulocytes 2.84 (1.4-6.9) Basophils # 0.05 (0-0.4) pO2/FiO2 Ratio % VBG pH (7.32-7.42) VBG pCO2 at Pat Temp (42-55) mm/Hg VBG pO2 at Pat Temp (25-40) mm/Hg VBG HCO3 (22-28) meq/L VBG O2 Sat (Ana) (95-100) VBG Base Excess (-2.0-2.0) VBG Hemoglobin VBG Carboxyhemoglobin (0.0-6.9) % T HGB POC Potassium (3.5-5.1) Sodium 136 L (137-145) mmol/L Potassium 4.6 (3.5-5.1) mmol/L Chloride 104 (98-107) mmol/L Carbon Dioxide 26 (22-30) mmol/L Anion Gap 10.2 (5-15) MEQ/L BUN 32 H (7-17) mg/dL Creatinine 1.53 H (0.52-1.04) mg/dL Estimated GFR 37.1 ML/MIN Glucose 257 H (74-106) mg/dL POC Glucometer 227 H (50 to 500) mg/dL Lactic Acid (0.4-2.0) Calcium 8.8 (8.4-10.2) mg/dL Magnesium (1.6-2.3) mg/dL Total Bilirubin 0.70 (0.2-1.3) mg/dL AST 20 (14-36) U/L ALT 15 (0-35) U/L Alkaline Phosphatase 77 (38-126) U/L Serum Total Protein 6.1 L (6.3-8.2) g/dL Albumin 3.4 L (3.5-5.0) g/dL Urinalys Dipstick Clnc Urine Color (YELLOW) Urine Appearance (CLEAR) Urine pH (5-6) Ur Specific [place] (1.005-1.025) POC Urine Protein Conf (Negative) Urine Ketones (NEGATIVE) Urine Nitrite (NEGATIVE) Urine Bilirubin (NEGATIVE) Urine Urobilinogen (0-1) mg/dL Urine Leukocytes (NEGATIVE) Urine WBC (Auto) (0-5) /HPF Urine RBC (Auto) (0-2) /HPF U Epithel Cells (Auto) (FEW) /HPF Urine Bacteria (Auto) (NEGATIVE) /HPF Urine RBC (0-5) Vaibhav/ul Ur Culture Indicated? Urine Glucose (NEGATIVE) mg/dL Ethyl Alcohol (0-10) mg/dL Influenza Type A Ag (NEGATIVE) Influenza Type B Ag (NEGATIVE) RSV (PCR) (Negative) SARS-CoV-2 (PCR) (NEGATIVE) Group A Strep Antibody (NEGATIVE) Accuchecks Date 10/06/21 Date 10/05/21 Date 10/05/21 Date 10/05/21 Time 04:05 Time 19:26 Time 18:25 Time 16:59 - Radiology Impressions Radiology Exams & Impressions: Radiology Procedures Category Date Time Status CHEST 1 VIEW (PORTABLE) Stat Exams 10/05/21 17:24 Completed Assessment/Plan (1) Hyperglycemia Current Visit: Yes Status: Acute Code(s): R73.9 - HYPERGLYCEMIA, UNSPECIFIED (2) Uncontrolled diabetes mellitus Current Visit: Yes Status: Acute Qualifiers: Diabetes mellitus type: type 2 Glycemic state: with hyperglycemia Qualified Code(s): E11.65 - Type 2 diabetes mellitus with hyperglycemia Code(s): [id number] -
[2021-10-06 12:19] VITALS: BP 160/98; PULSE 73; O2SAT 98
--- NOTE | 2021-10-06 14:54 | PCM.DS ---
Discharge Summary Date of Admission: 10/06/21 00:09 Admitting Physician: TAMIKO NGO Primary Care Provider: ASHVIN RUELAS MD Allergies Allergies Sulfa (Sulfonamide Antibiotics) Allergy (Intermediate, Verified 10/06/21 01:28) [facility] Summary - Hospital Course Hospital Course: Chief Complaint Diagnosis Uncontrolled diabetes Allergies Allergy/AdvReac Type Severity Reaction Status Date / Time Sulfa (Sulfonamide Allergy Intermediate Hives Verified 10/06/21 01:28 Antibiotics) Vital Signs (Last 24 hours) Temp Pulse Resp BP BP Pulse Ox 10/06/21 12:00 98.2 F 73 16 160/98 98 10/06/21 11:30 66 10/06/21 07:55 98.0 F 66 18 160/97 99 10/06/21 07:46 63 10/06/21 04:00 97.3 F 64 17 119/77 96 10/06/21 01:11 97.3 F 68 16 137/77 93 L 10/06/21 01:00 93 L 10/06/21 00:35 65 18 101/64 98 10/06/21 00:00 63 16 93/57 98 10/05/21 23:38 62 18 88/50 95 10/05/21 22:30 64 18 73/44 98 10/05/21 20:00 81 18 121/87 97 10/05/21 19:14 70 20 144/90 98 10/05/21 18:41 98 10/05/21 18:12 78 18 130/84 98 10/05/21 17:02 97.8 F 85 18 175/102 91 L Home Medications Medication Instructions Recorded Confirmed Last Taken Type Insulin Glargine [Lantus Insulin] 20 units SQ HS 30 Days 10/06/21 Unknown Rx Metformin HCl Xr 500 mg 500 mg PO DAILY #30 tab 10/06/21 Unknown Rx [Glucophage XR 500 MG] Semaglutide [Ozempic] 0.25 mg SQ WEEKLY 30 Days 10/06/21 Unknown Rx Current Medications Discontinued Medications Generic Name Dose Route Start Last Admin Trade Name Freq PRN Reason Stop Dose Admin Acetaminophen 650 mg 10/06/21 00:13 Acetaminophen 325 Mg Tablet PO 11/05/21 00:12 Q4H PRN PRN PAIN AND/OR FEVER Hydrocodone Bitart/Acetaminophen 1 tablet 10/06/21 10:00 10/06/21 10:08 Hydrocodone/Acetamin 10-325 Mg Tablet PO 10/11/21 09:59 1 tablet QID BARBER Administration Alprazolam 0.5 mg 10/06/21 09:50 10/06/21 10:11 Alprazolam 0.5 Mg Tablet PO 11/05/21 09:49 0.5 mg Q8H PRN PRN Administration ANXIETY Amlodipine Besylate 10 mg 10/06/21 22:00 Amlodipine Besylate 5 Mg Tablet PO 11/05/21 21:59 HS BARBER Gabapentin 400 mg 10/06/21 10:00 10/06/21 10:08 Gabapentin 400 Mg Capsule PO 11/05/21 09:59 400 mg TID BARBER Administration Sodium Chloride 1,000 mls @ 999 mls/hr 10/05/21 17:24 10/05/21 19:11 Sodium Chloride 0.9% 1000 Ml IV 10/05/21 18:24 Infused .Q1H1M STA Infusion Insulin Human Regular 100 unit 100 mls @ 11 mls/hr 10/05/21 17:32 10/05/21 21:37 / Sodium Chloride IV 11/04/21 17:31 0 unit/hr .Q9H6M PRN 0 mls/hr DKA/HYPERGLYCEMIA Titration Protocol 11 UNIT/HR Sodium Chloride Confirm 10/05/21 17:39 Sodium Chloride 0.9% 1000 Ml Administered 10/05/21 17:40 Dose 1,000 mls @ ud .ROUTE .STK-MED ONE Sodium Chloride Confirm 10/05/21 17:57 Sodium Chloride 0.9% 100 Ml Bag Administered 10/05/21 17:58 Dose 100 mls @ ud .ROUTE .STK-MED ONE Sodium Chloride Confirm 10/05/21 21:56 Sodium Chloride 0.9% 1000 Ml Administered 10/05/21 21:57 Dose 1,000 mls @ ud .ROUTE .STK-MED ONE Sodium Chloride 1,000 mls @ 999 mls/hr 10/05/21 22:01 10/05/21 22:02 Sodium Chloride 0.9% 1000 Ml IV 10/05/21 23:01 999 mls/hr .Q1H1M STA Administration Sodium Chloride 1,000 mls @ 999 mls/hr 10/05/21 23:18 10/05/21 23:20 Sodium Chloride 0.9% 1000 Ml IV 10/06/21 00:18 999 mls/hr .Q1H1M STA Administration Sodium Chloride Confirm 10/05/21 23:17 Sodium Chloride 0.9% 1000 Ml Administered 10/05/21 23:18 Dose 1,000 mls @ ud .ROUTE .STK-MED ONE Sodium Chloride 1,000 mls @ 100 mls/hr 10/06/21 00:13 10/06/21 11:31 Sodium Chloride 0.9% 1000 Ml IV 11/05/21 00:12 Not Given .Q10H BARBER Ceftriaxone Sodium/Dextrose 1 g in 50 mls @ 100 mls/hr 10/06/21 10:00 10/06/21 00:25 Rocephin 1 Gm-D5w 50 Ml Bag IV 10/09/21 09:59 100 mls/hr Q24H10 BARBER Administration Ceftriaxone Sodium/Dextrose 1 g in 50 mls @ 100 mls/hr 10/06/21 22:00 Rocephin 1 Gm-D5w 50 Ml Bag IV 10/09/21 21:59 Q24H22 BARBER Insulin Human Regular 10 unit 10/05/21 17:24 10/05/21 17:40 Insulin Regular, Human 1 Unit SQ 10/05/21 17:25 10 unit STAT ONE Administration Insulin Human Regular Confirm 10/05/21 17:39 Insulin Regular, Human 1 Unit Administered 10/05/21 17:40 Dose 10 unit .ROUTE .STK-MED ONE Insulin Human Regular Confirm 10/05/21 17:57 Insulin Regular, Human 1 Unit Administered 10/05/21 17:58 Dose 100 unit .ROUTE .STK-MED ONE Insulin Human Regular 0 unit 10/06/21 01:54 10/06/21 11:25 Insulin Regular, Human 1 Unit SQ 11/05/21 01:53 11 unit UD PRN Administration HYPERGLYCEMIA Lisinopril 20 mg 10/06/21 10:00 10/06/21 10:08 Lisinopril 20 Mg Tablet PO 11/05/21 09:59 20 mg BID BARBER Administration Metformin HCl 500 mg 10/06/21 10:00 10/06/21 10:08 Metformin Hcl 500 Mg Tablet PO 11/05/21 09:59 500 mg QAM@0800 BARBER Administration Morphine Sulfate 2 mg 10/06/21 00:13 Morphine Sulfate 2 Mg/Ml Inj IV 10/11/21 00:12 Q4H PRN PRN PAIN Non-Formulary Drug : 2 each 10/06/21 10:00 10/06/21 10:09 Propranolol 80 Mg PO 11/05/21 09:59 2 each Caps DAILY BARBER Administration Ondansetron HCl 4 mg 10/06/21 00:13 Ondansetron Hcl 4 Mg/2 Ml Vial IV 11/05/21 00:12 Q6H PRN PRN NAUSEA/VOMITING Tizanidine HCl 2 mg 10/06/21 10:00 10/06/21 10:07 Tizanidine Hcl 4 Mg Tablet PO 11/05/21 09:59 2 mg BID BARBER Administration Intake & Output (Last 24 hours) 10/04/21 10/05/21 10/06/21 10/07/21 11:59 11:59 11:59 11:59 Intake Total 948 Output Total 1800 Balance -852 Weight 118 kg Microbiology Results (Last 24 hours) 10/05/21 17:34 Clean Catch Midstream Urine Culture - Pending Laboratory Results (Last 24 hours) 10/06/21 10/06/21 10/06/21 11:20 07:14 05:15 WBC RBC Hgb Hct MCV MCH MCHC RDW Plt Count MPV Gran % Eos # (Auto) Absolute Lymphs (auto) Absolute Monos (auto) Lymphocytes % Monocytes % Eosinophils % Basophils % Absolute Granulocytes Basophils # pO2/FiO2 Ratio VBG pH VBG pCO2 at Pat Temp VBG pO2 at Pat Temp VBG HCO3 VBG O2 Sat (Ana) VBG Base Excess VBG Hemoglobin VBG Carboxyhemoglobin POC Potassium Sodium Potassium Chloride Carbon Dioxide Anion Gap BUN Creatinine Estimated GFR Glucose POC Glucometer 366 H 227 H Hemoglobin A1c > 14.00 H Lactic Acid Calcium Magnesium Total Bilirubin AST ALT Alkaline Phosphatase Serum Total Protein Albumin Urinalys Dipstick Clnc Urine Color Urine Appearance Urine pH Ur Specific [place] POC Urine Protein Conf Urine Ketones Urine Nitrite Urine Bilirubin Urine Urobilinogen Urine Leukocytes Urine WBC (Auto) Urine RBC (Auto) U Epithel Cells (Auto) Urine Bacteria (Auto) Urine RBC Ur Culture Indicated? Urine Glucose Ethyl Alcohol Influenza Type A Ag Influenza Type B Ag RSV (PCR) SARS-CoV-2 (PCR) Group A Strep Antibody 10/06/21 10/06/2122 05:15 05:15 04:06 WBC 6.0 RBC 4.13 Hgb 12.9 Hct 39.6 MCV 95.9 MCH 31.2 MCHC 32.6 RDW 14.4 H Plt Count 135 L MPV 12.7 H Gran % 47.5 Eos # (Auto) 0.30 Absolute Lymphs (auto) 2.27 Absolute Monos (auto) 0.53 Lymphocytes % 37.9 Monocytes % 8.8 Eosinophils % 5.0 Basophils % 0.8 Absolute Granulocytes 2.84 Basophils # 0.05 pO2/FiO2 Ratio VBG pH VBG pCO2 at Pat Temp VBG pO2 at Pat Temp VBG HCO3 VBG O2 Sat (Ana) VBG Base Excess VBG Hemoglobin VBG Carboxyhemoglobin POC Potassium Sodium 136 L Potassium 4.6 Chloride 104 Carbon Dioxide 26 Anion Gap 10.2 BUN 32 H Creatinine 1.53 H Estimated GFR 37.1 Glucose 257 H POC Glucometer 268 H Hemoglobin A1c Lactic Acid Calcium 8.8 Magnesium Total Bilirubin 0.70 AST 20 ALT 15 Alkaline Phosphatase 77 Serum Total Protein 6.1 L Albumin 3.4 L Urinalys Dipstick Clnc Urine Color Urine Appearance Urine pH Ur Specific [place] POC Urine Protein Conf Urine Ketones Urine Nitrite Urine Bilirubin Urine Urobilinogen Urine Leukocytes Urine WBC (Auto) Urine RBC (Auto) U Epithel Cells (Auto) Urine Bacteria (Auto) Urine RBC Ur Culture Indicated? Urine Glucose Ethyl Alcohol Influenza Type A Ag Influenza Type B Ag RSV (PCR) SARS-CoV-2 (PCR) Group A Strep Antibody 10/06/21 10/06/21 10/05/21 04:00 01:00 23:26 WBC RBC Hgb Hct MCV MCH MCHC RDW Plt Count MPV Gran % Eos # (Auto) Absolute Lymphs (auto) Absolute Monos (auto) Lymphocytes % Monocytes % Eosinophils % Basophils % Absolute Granulocytes Basophils # pO2/FiO2 Ratio 21.0 VBG pH 7.32 VBG pCO2 at Pat Temp 56 H VBG pO2 at Pat Temp 24 L VBG HCO3 28.9 H VBG O2 Sat (Ana) 53.3 L VBG Base Excess 1.6 VBG Hemoglobin 13.0 VBG Carboxyhemoglobin 3.3 POC Potassium 4.9 Sodium 135 L D Potassium 4.1 D Chloride 102 Carbon Dioxide 24 Anion Gap 12.1 BUN 35 H Creatinine 1.47 H Estimated GFR 38.8 Glucose 213 H POC Glucometer 211 H Hemoglobin A1c Lactic Acid 0.9 Calcium 8.7 Magnesium Total Bilirubin AST ALT Alkaline Phosphatase Serum Total Protein Albumin Urinalys Dipstick Clnc Urine Color Urine Appearance Urine pH Ur Specific [place] POC Urine Protein Conf Urine Ketones Urine Nitrite Urine Bilirubin Urine Urobilinogen Urine Leukocytes Urine WBC (Auto) Urine RBC (Auto) U Epithel Cells (Auto) Urine Bacteria (Auto) Urine RBC Ur Culture Indicated? Urine Glucose Ethyl Alcohol Influenza Type A Ag Influenza Type B Ag RSV (PCR) SARS-CoV-2 (PCR) Group A Strep Antibody 10/05/21 10/05/21 10/05/21 22:49 21:32 20:42 WBC RBC Hgb Hct MCV MCH MCHC RDW Plt Count MPV Gran % Eos # (Auto) Absolute Lymphs (auto) Absolute Monos (auto) Lymphocytes % Monocytes % Eosinophils % Basophils % Absolute Granulocytes Basophils # pO2/FiO2 Ratio 28.0 VBG pH 7.36 VBG pCO2 at Pat Temp 47 VBG pO2 at Pat Temp 44 H VBG HCO3 26.6 VBG O2 Sat (Ana) 81.9 L VBG Base Excess 0.6 VBG Hemoglobin 13.1 VBG Carboxyhemoglobin 3.0 POC Potassium 4.9 Sodium Potassium Chloride Carbon Dioxide Anion Gap BUN Creatinine Estimated GFR Glucose POC Glucometer 157 H 237 H Hemoglobin A1c Lactic Acid Calcium Magnesium Total Bilirubin AST ALT Alkaline Phosphatase Serum Total Protein Albumin Urinalys Dipstick Clnc Urine Color Urine Appearance Urine pH Ur Specific [place] POC Urine Protein Conf Urine Ketones Urine Nitrite Urine Bilirubin Urine Urobilinogen Urine Leukocytes Urine WBC (Auto) Urine RBC (Auto) U Epithel Cells (Auto) Urine Bacteria (Auto) Urine RBC Ur Culture Indicated? Urine Glucose Ethyl Alcohol Influenza Type A Ag Influenza Type B Ag RSV (PCR) SARS-CoV-2 (PCR) Group A Strep Antibody 10/05/21 10/05/21 10/05/21 19:25 18:00 18:00 WBC RBC Hgb Hct MCV MCH MCHC RDW Plt Count MPV Gran % Eos # (Auto) Absolute Lymphs (auto) Absolute Monos (auto) Lymphocytes % Monocytes % Eosinophils % Basophils % Absolute Granulocytes Basophils # pO2/FiO2 Ratio VBG pH VBG pCO2 at Pat Temp VBG pO2 at Pat Temp VBG HCO3 VBG O2 Sat (Ana) VBG Base Excess VBG Hemoglobin VBG Carboxyhemoglobin POC Potassium Sodium Potassium Chloride Carbon Dioxide Anion Gap BUN Creatinine Estimated GFR Glucose POC Glucometer 589 H* Hemoglobin A1c Lactic Acid Calcium Magnesium Total Bilirubin AST ALT Alkaline Phosphatase Serum Total Protein Albumin Urinalys Dipstick Clnc Urine Color Urine Appearance Urine pH Ur Specific [place] POC Urine Protein Conf Urine Ketones Urine Nitrite Urine Bilirubin Urine Urobilinogen Urine Leukocytes Urine WBC (Auto) Urine RBC (Auto) U Epithel Cells (Auto) Urine Bacteria (Auto) Urine RBC Ur Culture Indicated? Urine Glucose Ethyl Alcohol Influenza Type A Ag NEGATIVE Influenza Type B Ag NEGATIVE RSV (PCR) NEGATIVE SARS-CoV-2 (PCR) NEGATIVE Group A Strep Antibody NEGATIVE 10/05/21 10/05/21 10/05/21 18:00 17:46 17:46 WBC 4.8 RBC 4.40 Hgb 13.9 Hct 41.9 MCV 95.2 MCH 31.6 MCHC 33.2 RDW 13.9 Plt Count 124 L MPV 12.5 H Gran % 59.8 Eos # (Auto) 0.23 Absolute Lymphs (auto) 1.25 Absolute Monos (auto) 0.43 Lymphocytes % 25.9 Monocytes % 8.9 Eosinophils % 4.8 Basophils % 0.6 Absolute Granulocytes 2.88 Basophils # 0.03 pO2/FiO2 Ratio 21.0 VBG pH 7.49 H VBG pCO2 at Pat Temp 33 L VBG pO2 at Pat Temp 64 H VBG HCO3 25.1 VBG O2 Sat (Ana) 95.7 VBG Base Excess 2.2 H VBG Hemoglobin 14.2 VBG Carboxyhemoglobin 5.1 POC Potassium 5.4 H Sodium Potassium Chloride Carbon Dioxide Anion Gap BUN Creatinine Estimated GFR Glucose POC Glucometer Hemoglobin A1c Lactic Acid 1.1 Calcium Magnesium Total Bilirubin AST ALT Alkaline Phosphatase Serum Total Protein Albumin Urinalys Dipstick Clnc Urine Color Urine Appearance Urine pH Ur Specific [place] POC Urine Protein Conf Urine Ketones Urine Nitrite Urine Bilirubin Urine Urobilinogen Urine Leukocytes Urine WBC (Auto) Urine RBC (Auto) U Epithel Cells (Auto) Urine Bacteria (Auto) Urine RBC Ur Culture Indicated? Urine Glucose Ethyl Alcohol Influenza Type A Ag Influenza Type B Ag RSV (PCR) SARS-CoV-2 (PCR) Group A Strep Antibody 10/05/21 10/05/21 17:34 17:24 WBC RBC Hgb Hct MCV MCH MCHC RDW Plt Count MPV Gran % Eos # (Auto) Absolute Lymphs (auto) Absolute Monos (auto) Lymphocytes % Monocytes % Eosinophils % Basophils % Absolute Granulocytes Basophils # pO2/FiO2 Ratio VBG pH VBG pCO2 at Pat Temp VBG pO2 at Pat Temp VBG HCO3 VBG O2 Sat (Ana) VBG Base Excess VBG Hemoglobin VBG Carboxyhemoglobin POC Potassium Sodium 127 L Potassium 5.2 H Chloride 92 L Carbon Dioxide 24 Anion Gap 16.1 H BUN 40 H Creatinine 1.34 H Estimated GFR 43.2 Glucose 796 H* POC Glucometer Hemoglobin A1c Lactic Acid Calcium 9.9 Magnesium 1.9 Total Bilirubin 1.10 AST 20 ALT 18 Alkaline Phosphatase 107 Serum Total Protein 6.5 Albumin 3.9 Urinalys Dipstick Clnc MAIN LAB Urine Color YELLOW Urine Appearance CLEAR Urine pH 6.0 Ur Specific [place] 1.010 POC Urine Protein Conf NEGATIVE Urine Ketones NEGATIVE Urine Nitrite NEGATIVE Urine Bilirubin NEGATIVE Urine Urobilinogen 0.2 Urine Leukocytes TRACE Urine WBC (Auto) 6-10 Urine RBC (Auto) 3-5 U Epithel Cells (Auto) RARE Urine Bacteria (Auto) RARE Urine RBC TRACE-INTACT Ur Culture Indicated? YES Urine Glucose >=1000 Ethyl Alcohol < 10 Influenza Type A Ag Influenza Type B Ag RSV (PCR) SARS-CoV-2 (PCR) Group A Strep Antibody Orders (Last 24 hours) Category Date Time Status Bedrest with BRP/BSC ROUTINE Activity 10/06/21 00:13 Completed Up With Assistance ROUTINE Activity 10/06/21 00:13 Completed Code Status Order ROUTINE Care 10/06/21 00:13 Completed EKG-ER Only STAT Care 10/05/21 17:24 Completed Fall Protocol Q1H Care 10/06/21 00:13 Completed IV Care Q6H Care 10/06/21 00:13 Completed IV Insertion STAT Care 10/05/21 17:24 Completed POCT Glucose Check ACHS Care 10/06/21 00:[address] in Observation ROUTINE Care 10/06/21 00:13 Completed [place] Mccullough ROUTINE Care 10/06/21 00:13 Completed Telemetry Q4H Care 10/06/21 00:13 Completed Weight,Daily 0600 Care 10/06/21 00:13 Completed Consistent Carbohydrate Diet 2000 Calorie Diet 10/06/21 Breakfast Completed Nutritional Admission Screen ONCE Diet 10/06/21 01:25 Completed Discharge Routine Discharge 10/06/21 Ordered Discharge/Telephone Order Routine Discharge 10/06/21 Active CHEST 1 VIEW (PORTABLE) Stat Exams 10/05/21 17:24 Completed BMP Urgent Lab 10/06/21 01:00 Completed CBC W DIFF AM.LAB Lab 10/06/21 05:15 Completed CBC W DIFF Stat Lab 10/05/21 18:00 Completed CMP AM.LAB Lab 10/06/21 05:15 Completed CMP Stat Lab 10/05/21 17:24 Completed COVID/FLU/RSV Panel Stat Lab 10/05/21 18:00 Completed CULTURE,URINE Stat Lab 10/05/21 17:34 Received ETHYL ALCOHOL Stat Lab 10/05/21 17:24 Completed Group A Strep Stat Lab 10/05/21 18:00 Completed HEMOGLOBIN A1C Urgent Lab 10/06/21 05:15 Completed Lactic Acid AM.LAB Lab 10/06/21 04:00 Completed Lactic Acid Urgent Lab 10/05/21 17:46 Completed MAGNESIUM Stat Lab 10/05/21 17:24 Completed POCT GLUCOSE Stat Lab 10/05/21 18:23 Received POCT GLUCOSE Stat Lab 10/05/21 19:25 Completed POCT GLUCOSE Stat Lab 10/05/21 20:42 Completed POCT GLUCOSE Stat Lab 10/05/21 21:32 Completed POCT GLUCOSE Stat Lab 10/05/21 23:26 Completed POCT GLUCOSE Stat Lab 10/06/21 04:06 Completed POCT GLUCOSE Stat Lab 10/06/21 07:14 Completed POCT GLUCOSE Stat Lab 10/06/21 11:20 Completed UA W/RFX CULTURE Stat Lab 10/05/21 17:34 Completed VBG [VENOUS BLOOD GAS] Stat Lab 10/05/21 22:49 Completed VENOUS BLOOD GAS AM.LAB Lab 10/06/21 04:00 Completed VENOUS BLOOD GAS Urgent Lab 10/05/21 17:46 Completed ALPRAZolam 0.5 MG [xanAX 0.5 MG] Med 10/06/21 09:50 Discontinued 0.5 mg PO Q8H PRN PRN Acetaminophen 325 mg [Tylenol 325 mg] Med 10/06/21 00:13 Discontinued 650 mg PO Q4H PRN PRN Amlodipine Besylate 5 mg [Norvasc 5 mg] Med 10/06/21 22:00 Discontinued 10 mg PO HS Ceftriaxone 1 GM/50 ML PREMIX* [ROCEPHIN 1 Gm-D5w 50 ml Med 10/06/21 10:00 Discontinued Bag] 1 g in 50 ml IV Q24H10 Ceftriaxone 1 GM/50 ML PREMIX* [ROCEPHIN 1 Gm-D5w 50 ml Med 10/06/21 22:00 Discontinued Bag] 1 g in 50 ml IV Q24H22 Gabapentin 400 mg [Neurontin 400 MG] Med 10/06/21 10:00 Discontinued 400 mg PO TID Hydrocodone/Acetaminophen [Hydrocodone-Acetamin 10-325 Med 10/06/21 10:00 Discontinued mg] 1 tablet PO QID Insulin Regular, Human [Humulin R] Med 10/05/21 17:39 Discontinued 10 unit .ROUTE .STK-MED ONE Insulin Regular, Human [Humulin R] Med 10/05/21 17:24 Discontinued 10 unit SQ STAT ONE Insulin Regular, Human [Humulin R] Med 10/05/21 17:57 Discontinued 100 unit .ROUTE .STK-MED ONE Insulin Regular, Human [Humulin R] Med 10/06/21 01:54 Discontinued See Dose Instructions SQ UD PRN Lisinopril 20 mg [Zestril 20 MG] Med 10/06/21 10:00 Discontinued 20 mg PO BID Metformin HCl 500 mg [Glucophage 500 MG] Med 10/06/21 10:00 Discontinued 500 mg PO QAM@0800 Morphine Sulfate 2 mg Inj Med 10/06/21 00:13 Discontinued 2 mg IV Q4H PRN PRN NaCl 0.9% 1000 ml [Sodium Chloride 0.9% 1000 ML] 1,000 Med 10/05/21 17:39 Discontinued ml .ROUTE UD NaCl 0.9% 1000 ml [Sodium Chloride 0.9% 1000 ML] 1,000 Med 10/05/21 21:56 Discontinued ml .ROUTE UD NaCl 0.9% 1000 ml [Sodium Chloride 0.9% 1000 ML] 1,000 Med 10/05/21 23:17 Discontinued ml .ROUTE UD NaCl 0.9% 1000 ml [Sodium Chloride 0.9% 1000 ML] 1,000 Med 10/06/21 00:13 Discontinued ml IV 100 mls/hr NaCl 0.9% 1000 ml [Sodium Chloride 0.9% 1000 ML] 1,000 Med 10/05/21 17:24 Discontinued ml IV 999 mls/hr NaCl 0.9% 1000 ml [Sodium Chloride 0.9% 1000 ML] 1,000 Med 10/05/21 22:01 Discontinued ml IV 999 mls/hr NaCl 0.9% 1000 ml [Sodium Chloride 0.9% 1000 ML] 1,000 Med 10/05/21 23:18 Discontinued ml IV 999 mls/hr NaCl 0.9% 100Ml [Sodium Chloride 0.9% 100 ML BAG] 100 Med 10/05/21 17:32 Discontinued ml Insulin Regular, Human [Humulin R] 100 unit IV 11 unit/hr NaCl 0.9% 100Ml [Sodium Chloride 0.9% 100 ML BAG] 100 Med 10/05/21 17:57 Discontinued ml .ROUTE UD Non-Formulary Drug [Non-Formulary Item] Med 10/06/21 10:00 Discontinued 2 each PO DAILY Ondansetron HCl 4 mg/2 ml [Zofran 4 MG/2 ML VIAL] Med 10/06/21 00:13 Discontinued 4 mg IV Q6H PRN PRN Tizanidine HCl 4 mg [Zanaflex 4 MG] Med 10/06/21 10:00 Discontinued 2 mg PO BID Oxygen Nasal Cannula 2 lpm RT 10/06/21 05:36 Completed Respiratory Therapy Consult ROUTINE RT 10/06/21 00:13 Completed Patient Care Notes (Last 24 hours) 10/06/21 13:57 Nursing Note by Karey Ybarra PT WOULD LIKE TO TRY METFORMIN ER AT HOME BEFORE TAKING INJECTIONS. SHE FEELS THAT IT WON'T UPSET HER STOMACH BADLY REGULAR METFORMIN. EXTENSIVE EDUCATION ON MEDICATIONS GIVEN AND PT TOLD THAT SHE MUST FOLLOW UP WITH HER PRIMARY PHYSICIAN. PT'S DAUGHTER AT BEDSIDE AND PLANS TO CALL FOR APPOINTMENT IN AM FOR HER MOTHER AND SHE AND PATIENT AND PT'S ALL VERBALIZED UNDERSTANDING OF MEDICATION EDUCATION. THEY ALL UNDERSTAND THAT IF PT CANNOT TOLERATE METFORMIN IN ANY FORM SHE HAS TO BEGIN TAKING INSULIN AND OZEMPIC (BOTH OF WHICH HAVE BEEN CALLED IN TO [facility]). Initialized on 10/06/21 13:57 - END OF NOTE 10/06/21 13:29 Nursing Note by Scarlet Noel WITH DR. NGO. PATIENT STATED THAT SHE WOULD REFUSE TO TAKE METFORMIN AT HOME DUE THE THE GI ISSUES. DR. NGO AND PATIENT DISCUSSED STARTING ON OZEMPIC WEEKLY AND LANTUS 20 UNITS HS. FOLLOW UP WITH PCP. THIS NURSE CALLED MEDICATIONS INTO [facility] Initialized on 10/06/21 13:29 - END OF NOTE 10/06/21 01:17 Respiratory Note by Mary Kate Tijerina PT HAS NOT RESPIRATORY HX NO THERAPY INDICATED Initialized on 10/06/21 01:17 - END OF NOTE - Vitals & Intake/Output Vital Signs: Vital Signs Temperature 98.2 F 10/06/21 12:00 Pulse Rate 73 10/06/21 12:00 Respiratory Rate 16 10/06/21 12:00 Blood Pressure 160/98 10/06/21 12:00 O2 Sat by Pulse Oximetry 98 10/06/21 12:00 Intake & Output: Intake & Output 10/04/21 10/05/21 10/06/21 10/07/21 11:59 11:59 11:59 11:59 Intake Total 948 Output Total 1800 Balance -852 Weight 118 kg - Lab Result Diagrams: 10/06/21 05:15 10/06/21 05:15 Lab Results-Last 24 Hrs: Lab Results-Last 24 Hours 10/05/21 10/05/21 10/05/21 Range/Units 17:24 17:34 17:46 WBC (4.0-10.5) K/mm3 RBC (4.1-5.4) M/mm3 Hgb (12.0-16.0) gm/dl Hct (35-47) % MCV (78-100) fl MCH (26-32) pg MCHC (32-36) g/dl RDW (11.5-14.0) % Plt Count (150-450) K/mm3 MPV (7.5-11.0) fl Gran % (36.0-66.0) % Eos # (Auto) (0-0.5) Absolute Lymphs (auto) (1.0-4.6) Absolute Monos (auto) (0.0-1.3) Lymphocytes % (24.0-44.0) % Monocytes % (0.0-12.0) % Eosinophils % (0.00-5.0) % Basophils % (0.0-0.4) % Absolute Granulocytes (1.4-6.9) Basophils # (0-0.4) pO2/FiO2 Ratio % VBG pH (7.32-7.42) VBG pCO2 at Pat Temp (42-55) mm/Hg VBG pO2 at Pat Temp (25-40) mm/Hg VBG HCO3 (22-28) meq/L VBG O2 Sat (Ana) (95-100) VBG Base Excess (-2.0-2.0) VBG Hemoglobin VBG Carboxyhemoglobin (0.0-6.9) % T HGB POC Potassium (3.5-5.1) Sodium 127 L (137-145) mmol/L Potassium 5.2 H (3.5-5.1) mmol/L Chloride 92 L (98-107) mmol/L Carbon Dioxide 24 (22-30) mmol/L Anion Gap 16.1 H (5-15) MEQ/L BUN 40 H (7-17) mg/dL Creatinine 1.34 H (0.52-1.04) mg/dL Estimated GFR 43.2 ML/MIN Glucose 796 H* (74-106) mg/dL POC Glucometer (50 to 500) mg/dL Hemoglobin A1c (4.5-6.0) % Lactic Acid 1.1 (0.4-2.0) Calcium 9.9 (8.4-10.2) mg/dL Magnesium 1.9 (1.6-2.3) mg/dL Total Bilirubin 1.10 (0.2-1.3) mg/dL AST 20 (14-36) U/L ALT 18 (0-35) U/L Alkaline Phosphatase 107 (38-126) U/L Serum Total Protein 6.5 (6.3-8.2) g/dL Albumin 3.9 (3.5-5.0) g/dL Urinalys Dipstick Clnc MAIN LAB Urine Color YELLOW (YELLOW) Urine Appearance CLEAR (CLEAR) Urine pH 6.0 (5-6) Ur Specific [place] 1.010 (1.005-1.025) POC Urine Protein Conf NEGATIVE (Negative) Urine Ketones NEGATIVE (NEGATIVE) Urine Nitrite NEGATIVE (NEGATIVE) Urine Bilirubin NEGATIVE (NEGATIVE) Urine Urobilinogen 0.2 (0-1) mg/dL Urine Leukocytes TRACE (NEGATIVE) Urine WBC (Auto) 6-10 (0-5) /HPF Urine RBC (Auto) 3-5 (0-2) /HPF U Epithel Cells (Auto) RARE (FEW) /HPF Urine Bacteria (Auto) RARE (NEGATIVE) /HPF Urine RBC TRACE-INTACT (0-5) Vaibhav/ul Ur Culture Indicated? YES Urine Glucose >=1000 (NEGATIVE) mg/dL Ethyl Alcohol < 10 (0-10) mg/dL Influenza Type A Ag (NEGATIVE) Influenza Type B Ag (NEGATIVE) RSV (PCR) (Negative) SARS-CoV-2 (PCR) (NEGATIVE) Group A Strep Antibody (NEGATIVE) 10/05/21 10/05/21 10/05/21 Range/Units 17:46 18:00 18:00 WBC 4.8 (4.0-10.5) K/mm3 RBC 4.40 (4.1-5.4) M/mm3 Hgb 13.9 (12.0-16.0) gm/dl Hct 41.9 (35-47) % MCV 95.2 (78-100) fl MCH 31.6 (26-32) pg MCHC 33.2 (32-36) g/dl RDW 13.9 (11.5-14.0) % Plt Count 124 L (150-450) K/mm3 MPV 12.5 H (7.5-11.0) fl Gran % 59.8 (36.0-66.0) % Eos # (Auto) 0.23 (0-0.5) Absolute Lymphs (auto) 1.25 (1.0-4.6) Absolute Monos (auto) 0.43 (0.0-1.3) Lymphocytes % 25.9 (24.0-44.0) % Monocytes % 8.9 (0.0-12.0) % Eosinophils % 4.8 (0.00-5.0) % Basophils % 0.6 (0.0-0.4) % Absolute Granulocytes 2.88 (1.4-6.9) Basophils # 0.03 (0-0.4) pO2/FiO2 Ratio 21.0 % VBG pH 7.49 H (7.32-7.42) VBG pCO2 at Pat Temp 33 L (42-55) mm/Hg VBG pO2 at Pat Temp 64 H (25-40) mm/Hg VBG HCO3 25.1 (22-28) meq/L VBG O2 Sat (Ana) 95.7 (95-100) VBG Base Excess 2.2 H (-2.0-2.0) VBG Hemoglobin 14.2 VBG Carboxyhemoglobin 5.1 (0.0-6.9) % T HGB POC Potassium 5.4 H (3.5-5.1) Sodium (137-145) mmol/L Potassium (3.5-5.1) mmol/L Chloride (98-107) mmol/L Carbon Dioxide (22-30) mmol/L Anion Gap (5-15) MEQ/L BUN (7-17) mg/dL Creatinine (0.52-1.04) mg/dL Estimated GFR ML/MIN Glucose (74-106) mg/dL POC Glucometer (50 to 500) mg/dL Hemoglobin A1c (4.5-6.0) % Lactic Acid (0.4-2.0) Calcium (8.4-10.2) mg/dL Magnesium (1.6-2.3) mg/dL Total Bilirubin (0.2-1.3) mg/dL AST (14-36) U/L ALT (0-35) U/L Alkaline Phosphatase (38-126) U/L Serum Total Protein (6.3-8.2) g/dL Albumin (3.5-5.0) g/dL Urinalys Dipstick Clnc Urine Color (YELLOW) Urine Appearance (CLEAR) Urine pH (5-6) Ur Specific [place] (1.005-1.025) POC Urine Protein Conf (Negative) Urine Ketones (NEGATIVE) Urine Nitrite (NEGATIVE) Urine Bilirubin (NEGATIVE) Urine Urobilinogen (0-1) mg/dL Urine Leukocytes (NEGATIVE) Urine WBC (Auto) (0-5) /HPF Urine RBC (Auto) (0-2) /HPF U Epithel Cells (Auto) (FEW) /HPF Urine Bacteria (Auto) (NEGATIVE) /HPF Urine RBC (0-5) Vaibhav/ul Ur Culture Indicated? Urine Glucose (NEGATIVE) mg/dL Ethyl Alcohol (0-10) mg/dL Influenza Type A Ag (NEGATIVE) Influenza Type B Ag (NEGATIVE) RSV (PCR) (Negative) SARS-CoV-2 (PCR) (NEGATIVE) Group A Strep Antibody NEGATIVE (NEGATIVE) 10/05/21 10/05/21 10/05/21 Range/Units 18:00 19:25 20:42 WBC (4.0-10.5) K/mm3 RBC (4.1-5.4) M/mm3 Hgb (12.0-16.0) gm/dl Hct (35-47) % MCV (78-100) fl MCH (26-32) pg MCHC (32-36) g/dl RDW (11.5-14.0) % Plt Count (150-450) K/mm3 MPV (7.5-11.0) fl Gran % (36.0-66.0) % Eos # (Auto) (0-0.5) Absolute Lymphs (auto) (1.0-4.6) Absolute Monos (auto) (0.0-1.3) Lymphocytes % (24.0-44.0) % Monocytes % (0.0-12.0) % Eosinophils % (0.00-5.0) % Basophils % (0.0-0.4) % Absolute Granulocytes (1.4-6.9) Basophils # (0-0.4) pO2/FiO2 Ratio % VBG pH (7.32-7.42) VBG pCO2 at Pat Temp (42-55) mm/Hg VBG pO2 at Pat Temp (25-40) mm/Hg VBG HCO3 (22-28) meq/L VBG O2 Sat (Ana) (95-100) VBG Base Excess (-2.0-2.0) VBG Hemoglobin VBG Carboxyhemoglobin (0.0-6.9) % T HGB POC Potassium (3.5-5.1) Sodium (137-145) mmol/L Potassium (3.5-5.1) mmol/L Chloride (98-107) mmol/L Carbon Dioxide (22-30) mmol/L Anion Gap (5-15) MEQ/L BUN (7-17) mg/dL Creatinine (0.52-1.04) mg/dL Estimated GFR ML/MIN Glucose (74-106) mg/dL POC Glucometer 589 H* 237 H (50 to 500) mg/dL Hemoglobin A1c (4.5-6.0) % Lactic Acid (0.4-2.0) Calcium (8.4-10.2) mg/dL Magnesium (1.6-2.3) mg/dL Total Bilirubin (0.2-1.3) mg/dL AST (14-36) U/L ALT (0-35) U/L Alkaline Phosphatase (38-126) U/L Serum Total Protein (6.3-8.2) g/dL Albumin (3.5-5.0) g/dL Urinalys Dipstick Clnc Urine Color (YELLOW) Urine Appearance (CLEAR) Urine pH (5-6) Ur Specific [place] (1.005-1.025) POC Urine Protein Conf (Negative) Urine Ketones (NEGATIVE) Urine Nitrite (NEGATIVE) Urine Bilirubin (NEGATIVE) Urine Urobilinogen (0-1) mg/dL Urine Leukocytes (NEGATIVE) Urine WBC (Auto) (0-5) /HPF Urine RBC (Auto) (0-2) /HPF U Epithel Cells (Auto) (FEW) /HPF Urine Bacteria (Auto) (NEGATIVE) /HPF Urine RBC (0-5) Vaibhav/ul Ur Culture Indicated? Urine Glucose (NEGATIVE) mg/dL Ethyl Alcohol (0-10) mg/dL Influenza Type A Ag NEGATIVE (NEGATIVE) Influenza Type B Ag NEGATIVE (NEGATIVE) RSV (PCR) NEGATIVE (Negative) SARS-CoV-2 (PCR) NEGATIVE (NEGATIVE) Group A Strep Antibody (NEGATIVE) 10/05/21 10/05/21 10/05/21 Range/Units 21:32 22:49 23:26 WBC (4.0-10.5) K/mm3 RBC (4.1-5.4) M/mm3 Hgb (12.0-16.0) gm/dl Hct (35-47) % MCV (78-100) fl MCH (26-32) pg MCHC (32-36) g/dl RDW (11.5-14.0) % Plt Count (150-450) K/mm3 MPV (7.5-11.0) fl Gran % (36.0-66.0) % Eos # (Auto) (0-0.5) Absolute Lymphs (auto) (1.0-4.6) Absolute Monos (auto) (0.0-1.3) Lymphocytes % (24.0-44.0) % Monocytes % (0.0-12.0) % Eosinophils % (0.00-5.0) % Basophils % (0.0-0.4) % Absolute Granulocytes (1.4-6.9) Basophils # (0-0.4) pO2/FiO2 Ratio 28.0 % VBG pH 7.36 (7.32-7.42) VBG pCO2 at Pat Temp 47 (42-55) mm/Hg VBG pO2 at Pat Temp 44 H (25-40) mm/Hg VBG HCO3 26.6 (22-28) meq/L VBG O2 Sat (Ana) 81.9 L (95-100) VBG Base Excess 0.6 (-2.0-2.0) VBG Hemoglobin 13.1 VBG Carboxyhemoglobin 3.0 (0.0-6.9) % T HGB POC Potassium 4.9 (3.5-5.1) Sodium (137-145) mmol/L Potassium (3.5-5.1) mmol/L Chloride (98-107) mmol/L Carbon Dioxide (22-30) mmol/L Anion Gap (5-15) MEQ/L BUN (7-17) mg/dL Creatinine (0.52-1.04) mg/dL Estimated GFR ML/MIN Glucose (74-106) mg/dL POC Glucometer 157 H 211 H (50 to 500) mg/dL Hemoglobin A1c (4.5-6.0) % Lactic Acid (0.4-2.0) Calcium (8.4-10.2) mg/dL Magnesium (1.6-2.3) mg/dL Total Bilirubin (0.2-1.3) mg/dL AST (14-36) U/L ALT (0-35) U/L Alkaline Phosphatase (38-126) U/L Serum Total Protein (6.3-8.2) g/dL Albumin (3.5-5.0) g/dL Urinalys Dipstick Clnc Urine Color (YELLOW) Urine Appearance (CLEAR) Urine pH (5-6) Ur Specific [place] (1.005-1.025) POC Urine Protein Conf (Negative) Urine Ketones (NEGATIVE) Urine Nitrite (NEGATIVE) Urine Bilirubin (NEGATIVE) Urine Urobilinogen (0-1) mg/dL Urine Leukocytes (NEGATIVE) Urine WBC (Auto) (0-5) /HPF Urine RBC (Auto) (0-2) /HPF U Epithel Cells (Auto) (FEW) /HPF Urine Bacteria (Auto) (NEGATIVE) /HPF Urine RBC (0-5) Vaibhav/ul Ur Culture Indicated? Urine Glucose (NEGATIVE) mg/dL Ethyl Alcohol (0-10) mg/dL Influenza Type A Ag (NEGATIVE) Influenza Type B Ag (NEGATIVE) RSV (PCR) (Negative) SARS-CoV-2 (PCR) (NEGATIVE) Group A Strep Antibody (NEGATIVE) 10/06/21 10/06/21 10/06/21 Range/Units 01:00 04:00 04:06 WBC (4.0-10.5) K/mm3 RBC (4.1-5.4) M/mm3 Hgb (12.0-16.0) gm/dl Hct (35-47) % MCV (78-100) fl MCH (26-32) pg MCHC (32-36) g/dl RDW (11.5-14.0) % Plt Count (150-450) K/mm3 MPV (7.5-11.0) fl Gran % (36.0-66.0) % Eos # (Auto) (0-0.5) Absolute Lymphs (auto) (1.0-4.6) Absolute Monos (auto) (0.0-1.3) Lymphocytes % (24.0-44.0) % Monocytes % (0.0-12.0) % Eosinophils % (0.00-5.0) % Basophils % (0.0-0.4) % Absolute Granulocytes (1.4-6.9) Basophils # (0-0.4) pO2/FiO2 Ratio 21.0 % VBG pH 7.32 (7.32-7.42) VBG pCO2 at Pat Temp 56 H (42-55) mm/Hg VBG pO2 at Pat Temp 24 L (25-40) mm/Hg VBG HCO3 28.9 H (22-28) meq/L VBG O2 Sat (Ana) 53.3 L (95-100) VBG Base Excess 1.6 (-2.0-2.0) VBG Hemoglobin 13.0 VBG Carboxyhemoglobin 3.3 (0.0-6.9) % T HGB POC Potassium 4.9 (3.5-5.1) Sodium 135 L D (137-145) mmol/L Potassium 4.1 D (3.5-5.1) mmol/L Chloride 102 (98-107) mmol/L Carbon Dioxide 24 (22-30) mmol/L Anion Gap 12.1 (5-15) MEQ/L BUN 35 H (7-17) mg/dL Creatinine 1.47 H (0.52-1.04) mg/dL Estimated GFR 38.8 ML/MIN Glucose 213 H (74-106) mg/dL POC Glucometer 268 H (50 to 500) mg/dL Hemoglobin A1c (4.5-6.0) % Lactic Acid 0.9 (0.4-2.0) Calcium 8.7 (8.4-10.2) mg/dL Magnesium (1.6-2.3) mg/dL Total Bilirubin (0.2-1.3) mg/dL AST (14-36) U/L ALT (0-35) U/L Alkaline Phosphatase (38-126) U/L Serum Total Protein (6.3-8.2) g/dL Albumin (3.5-5.0) g/dL Urinalys Dipstick Clnc Urine Color (YELLOW) Urine Appearance (CLEAR) Urine pH (5-6) Ur Specific [place] (1.005-1.025) POC Urine Protein Conf (Negative) Urine Ketones (NEGATIVE) Urine Nitrite (NEGATIVE) Urine Bilirubin (NEGATIVE) Urine Urobilinogen (0-1) mg/dL Urine Leukocytes (NEGATIVE) Urine WBC (Auto) (0-5) /HPF Urine RBC (Auto) (0-2) /HPF U Epithel Cells (Auto) (FEW) /HPF Urine Bacteria (Auto) (NEGATIVE) /HPF Urine RBC (0-5) Vaibhav/ul Ur Culture Indicated? Urine Glucose (NEGATIVE) mg/dL Ethyl Alcohol (0-10) mg/dL Influenza Type A Ag (NEGATIVE) Influenza Type B Ag (NEGATIVE) RSV (PCR) (Negative) SARS-CoV-2 (PCR) (NEGATIVE) Group A Strep Antibody (NEGATIVE) 10/06/21 10/06/21 10/06/21 Range/Units 05:15 05:15 05:15 WBC 6.0 (4.0-10.5) K/mm3 RBC 4.13 (4.1-5.4) M/mm3 Hgb 12.9 (12.0-16.0) gm/dl Hct 39.6 (35-47) % MCV 95.9 (78-100) fl MCH 31.2 (26-32) pg MCHC 32.6 (32-36) g/dl RDW 14.4 H (11.5-14.0) % Plt Count 135 L (150-450) K/mm3 MPV 12.7 H (7.5-11.0) fl Gran % 47.5 (36.0-66.0) % Eos # (Auto) 0.30 (0-0.5) Absolute Lymphs (auto) 2.27 (1.0-4.6) Absolute Monos (auto) 0.53 (0.0-1.3) Lymphocytes % 37.9 (24.0-44.0) % Monocytes % 8.8 (0.0-12.0) % Eosinophils % 5.0 (0.00-5.0) % Basophils % 0.8 (0.0-0.4) % Absolute Granulocytes 2.84 (1.4-6.9) Basophils # 0.05 (0-0.4) pO2/FiO2 Ratio % VBG pH (7.32-7.42) VBG pCO2 at Pat Temp (42-55) mm/Hg VBG pO2 at Pat Temp (25-40) mm/Hg VBG HCO3 (22-28) meq/L VBG O2 Sat (Ana) (95-100) VBG Base Excess (-2.0-2.0) VBG Hemoglobin VBG Carboxyhemoglobin (0.0-6.9) % T HGB POC Potassium (3.5-5.1) Sodium 136 L (137-145) mmol/L Potassium 4.6 (3.5-5.1) mmol/L Chloride 104 (98-107) mmol/L Carbon Dioxide 26 (22-30) mmol/L Anion Gap 10.2 (5-15) MEQ/L BUN 32 H (7-17) mg/dL Creatinine 1.53 H (0.52-1.04) mg/dL Estimated GFR 37.1 ML/MIN Glucose 257 H (74-106) mg/dL POC Glucometer (50 to 500) mg/dL Hemoglobin A1c > 14.00 H (4.5-6.0) % Lactic Acid (0.4-2.0) Calcium 8.8 (8.4-10.2) mg/dL Magnesium (1.6-2.3) mg/dL Total Bilirubin 0.70 (0.2-1.3) mg/dL AST 20 (14-36) U/L ALT 15 (0-35) U/L Alkaline Phosphatase 77 (38-126) U/L Serum Total Protein 6.1 L (6.3-8.2) g/dL Albumin 3.4 L (3.5-5.0) g/dL Urinalys Dipstick Clnc Urine Color (YELLOW) Urine Appearance (CLEAR) Urine pH (5-6) Ur Specific [place] (1.005-1.025) POC Urine Protein Conf (Negative) Urine Ketones (NEGATIVE) Urine Nitrite (NEGATIVE) Urine Bilirubin (NEGATIVE) Urine Urobilinogen (0-1) mg/dL Urine Leukocytes (NEGATIVE) Urine WBC (Auto) (0-5) /HPF Urine RBC (Auto) (0-2) /HPF U Epithel Cells (Auto) (FEW) /HPF Urine Bacteria (Auto) (NEGATIVE) /HPF Urine RBC (0-5) Vaibhav/ul Ur Culture Indicated? Urine Glucose (NEGATIVE) mg/dL Ethyl Alcohol (0-10) mg/dL Influenza Type A Ag (NEGATIVE) Influenza Type B Ag (NEGATIVE) RSV (PCR) (Negative) SARS-CoV-2 (PCR) (NEGATIVE) Group A Strep Antibody (NEGATIVE) 10/06/21 10/06/21 Range/Units 07:14 11:20 WBC (4.0-10.5) K/mm3 RBC (4.1-5.4) M/mm3 Hgb (12.0-16.0) gm/dl Hct (35-47) % MCV (78-100) fl MCH (26-32) pg MCHC (32-36) g/dl RDW (11.5-14.0) % Plt Count (150-450) K/mm3 MPV (7.5-11.0) fl Gran % (36.0-66.0) % Eos # (Auto) (0-0.5) Absolute Lymphs (auto) (1.0-4.6) Absolute Monos (auto) (0.0-1.3) Lymphocytes % (24.0-44.0) % Monocytes % (0.0-12.0) % Eosinophils % (0.00-5.0) % Basophils % (0.0-0.4) % Absolute Granulocytes (1.4-6.9) Basophils # (0-0.4) pO2/FiO2 Ratio % VBG pH (7.32-7.42) VBG pCO2 at Pat Temp (42-55) mm/Hg VBG pO2 at Pat Temp (25-40) mm/Hg VBG HCO3 (22-28) meq/L VBG O2 Sat (Ana) (95-100) VBG Base Excess (-2.0-2.0) VBG Hemoglobin VBG Carboxyhemoglobin (0.0-6.9) % T HGB POC Potassium (3.5-5.1) Sodium (137-145) mmol/L Potassium (3.5-5.1) mmol/L Chloride (98-107) mmol/L Carbon Dioxide (22-30) mmol/L Anion Gap (5-15) MEQ/L BUN (7-17) mg/dL Creatinine (0.52-1.04) mg/dL Estimated GFR ML/MIN Glucose (74-106) mg/dL POC Glucometer 227 H 366 H (50 to 500) mg/dL Hemoglobin A1c (4.5-6.0) % Lactic Acid (0.4-2.0) Calcium (8.4-10.2) mg/dL Magnesium (1.6-2.3) mg/dL Total Bilirubin (0.2-1.3) mg/dL AST (14-36) U/L ALT (0-35) U/L Alkaline Phosphatase (38-126) U/L Serum Total Protein (6.3-8.2) g/dL Albumin (3.5-5.0) g/dL Urinalys Dipstick Clnc Urine Color (YELLOW) Urine Appearance (CLEAR) Urine pH (5-6) Ur Specific [place] (1.005-1.025) POC Urine Protein Conf (Negative) Urine Ketones (NEGATIVE) Urine Nitrite (NEGATIVE) Urine Bilirubin (NEGATIVE) Urine Urobilinogen (0-1) mg/dL Urine Leukocytes (NEGATIVE) Urine WBC (Auto) (0-5) /HPF Urine RBC (Auto) (0-2) /HPF U Epithel Cells (Auto) (FEW) /HPF Urine Bacteria (Auto) (NEGATIVE) /HPF Urine RBC (0-5) Vaibhav/ul Ur Culture Indicated? Urine Glucose (NEGATIVE) mg/dL Ethyl Alcohol (0-10) mg/dL Influenza Type A Ag (NEGATIVE) Influenza Type B Ag (NEGATIVE) RSV (PCR) (Negative) SARS-CoV-2 (PCR) (NEGATIVE) Group A Strep Antibody (NEGATIVE) Micro Results-Entire Visit: Accuchecks Date 10/06/21 Date 10/05/21 Date 10/05/21 Date 10/05/21 Time 04:05 Time 19:26 Time 18:25 Time 16:59 - Radiology Exams Ordered Rad Exams-Entire Visit: Radiology Procedures Category Date Time Status CHEST 1 VIEW (PORTABLE) Stat Exams 10/05/21 17:24 Completed - Procedures and Test Procedures and Tests throughout Hospitalization: Therapy Orders & Screens 10/06/21 00:13 Respiratory Therapy Consult ROUTINE Comment: Reason For Exam: 10/06/21 05:36 Oxygen Nasal Cannula 2 lpm Comment: Diagnosis: Uncontrolled diabetes Discharge Exam General Appearance: no apparent distress, alert Neurologic Exam: alert, oriented x 3, cooperative, normal mood/affect, nml cerebellar function, sensation nml, No motor deficits Eye Exam: PERRL, EOMI, eyes nml inspection Ears, Nose, Throat Exam: normal ENT inspection, pharynx normal, moist mucous membranes Neck Exam: normal inspection, non-tender, supple, full range of motion Respiratory Exam: normal breath sounds, lungs clear, No respiratory distress Cardiovascular Exam: regular rate/rhythm, normal heart sounds Gastrointestinal/Abdomen Exam: soft, No tenderness, No mass Pelvic Exam: deferred Rectal Exam: deferred Back Exam: normal inspection, normal range of motion, No CVA tenderness, No vertebral tenderness Extremity Exam: normal inspection, normal range of motion Skin Exam: normal color, warm, dry Final Diagnosis/Problem List - Final Discharge Diagnosis/Problem (1) Hyperglycemia Status: Resolved Code(s): R73.9 - HYPERGLYCEMIA, UNSPECIFIED (2) Uncontrolled diabetes mellitus Status: Acute Assessment & Plan: Last Vital Signs Temp 98.2 F 10/06/21 12:00 Pulse 73 10/06/21 12:00 Resp 16 10/06/21 12:00 BP 160/98 10/06/21 12:00 Pulse Ox 98 10/06/21 12:00 Allergies Sulfa (Sulfonamide Antibiotics) Allergy (Intermediate, Verified 10/06/21 01:28) Hives Intake & Output 10/06/21 10/07/21 11:59 11:59 Intake Total 948 Output Total 1800 Balance -852 Weight 118 kg Orders 10/06/21 Discharge Routine Discharge/Telephone Order Routine Lab Tests 10/05/21 10/05/21 10/05/21 17:24 17:34 17:46 WBC RBC Hgb Hct MCV MCH MCHC RDW Plt Count MPV Gran % Eos # (Auto) Absolute Lymphs (auto) Absolute Monos (auto) Lymphocytes % Monocytes % Eosinophils % Basophils % Absolute Granulocytes Basophils # pO2/FiO2 Ratio VBG pH VBG pCO2 at Pat Temp VBG pO2 at Pat Temp VBG HCO3 VBG O2 Sat (Ana) VBG Base Excess VBG Hemoglobin VBG Carboxyhemoglobin POC Potassium Sodium 127 L Potassium 5.2 H Chloride 92 L Carbon Dioxide 24 Anion Gap 16.1 H BUN 40 H Creatinine 1.34 H Estimated GFR 43.2 Glucose 796 H* POC Glucometer Hemoglobin A1c Lactic Acid 1.1 Calcium 9.9 Magnesium 1.9 Total Bilirubin 1.10 AST 20 ALT 18 Alkaline Phosphatase 107 Serum Total Protein 6.5 Albumin 3.9 Urinalys Dipstick Clnc MAIN LAB Urine Color YELLOW Urine Appearance CLEAR Urine pH 6.0 Ur Specific [place] 1.010 POC Urine Protein Conf NEGATIVE Urine Ketones NEGATIVE Urine Nitrite NEGATIVE Urine Bilirubin NEGATIVE Urine Urobilinogen 0.2 Urine Leukocytes TRACE Urine WBC (Auto) 6-10 Urine RBC (Auto) 3-5 U Epithel Cells (Auto) RARE Urine Bacteria (Auto) RARE Urine RBC TRACE-INTACT Ur Culture Indicated? YES Urine Glucose >=1000 Ethyl Alcohol < 10 Influenza Type A Ag Influenza Type B Ag RSV (PCR) SARS-CoV-2 (PCR) Group A Strep Antibody 10/05/21 10/05/21 10/05/21 17:46 18:00 18:00 WBC 4.8 RBC 4.40 Hgb 13.9 Hct 41.9 MCV 95.2 MCH 31.6 MCHC 33.2 RDW 13.9 Plt Count 124 L MPV 12.5 H Gran % 59.8 Eos # (Auto) 0.23 Absolute Lymphs (auto) 1.25 Absolute Monos (auto) 0.43 Lymphocytes % 25.9 Monocytes % 8.9 Eosinophils % 4.8 Basophils % 0.6 Absolute Granulocytes 2.88 Basophils # 0.03 pO2/FiO2 Ratio 21.0 VBG pH 7.49 H VBG pCO2 at Pat Temp 33 L VBG pO2 at Pat Temp 64 H VBG HCO3 25.1 VBG O2 Sat (Ana) 95.7 VBG Base Excess 2.2 H VBG Hemoglobin 14.2 VBG Carboxyhemoglobin 5.1 POC Potassium 5.4 H Sodium Potassium Chloride Carbon Dioxide Anion Gap BUN Creatinine Estimated GFR Glucose POC Glucometer Hemoglobin A1c Lactic Acid Calcium Magnesium Total Bilirubin AST ALT Alkaline Phosphatase Serum Total Protein Albumin Urinalys Dipstick Clnc Urine Color Urine Appearance Urine pH Ur Specific [place] POC Urine Protein Conf Urine Ketones Urine Nitrite Urine Bilirubin Urine Urobilinogen Urine Leukocytes Urine WBC (Auto) Urine RBC (Auto) U Epithel Cells (Auto) Urine Bacteria (Auto) Urine RBC Ur Culture Indicated? Urine Glucose Ethyl Alcohol Influenza Type A Ag Influenza Type B Ag RSV (PCR) SARS-CoV-2 (PCR) Group A Strep Antibody NEGATIVE 10/05/21 10/05/21 10/05/21 18:00 19:25 20:42 WBC RBC Hgb Hct MCV MCH MCHC RDW Plt Count MPV Gran % Eos # (Auto) Absolute Lymphs (auto) Absolute Monos (auto) Lymphocytes % Monocytes % Eosinophils % Basophils % Absolute Granulocytes Basophils # pO2/FiO2 Ratio VBG pH VBG pCO2 at Pat Temp VBG pO2 at Pat Temp VBG HCO3 VBG O2 Sat (Ana) VBG Base Excess VBG Hemoglobin VBG Carboxyhemoglobin POC Potassium Sodium Potassium Chloride Carbon Dioxide Anion Gap BUN Creatinine Estimated GFR Glucose POC Glucometer 589 H* 237 H Hemoglobin A1c Lactic Acid Calcium Magnesium Total Bilirubin AST ALT Alkaline Phosphatase Serum Total Protein Albumin Urinalys Dipstick Clnc Urine Color Urine Appearance Urine pH Ur Specific [place] POC Urine Protein Conf Urine Ketones Urine Nitrite Urine Bilirubin Urine Urobilinogen Urine Leukocytes Urine WBC (Auto) Urine RBC (Auto) U Epithel Cells (Auto) Urine Bacteria (Auto) Urine RBC Ur Culture Indicated? Urine Glucose Ethyl Alcohol Influenza Type A Ag NEGATIVE Influenza Type B Ag NEGATIVE RSV (PCR) NEGATIVE SARS-CoV-2 (PCR) NEGATIVE Group A Strep Antibody 10/05/21 10/05/21 10/05/21 21:32 22:49 23:26 WBC RBC Hgb Hct MCV MCH MCHC RDW Plt Count MPV Gran % Eos # (Auto) Absolute Lymphs (auto) Absolute Monos (auto) Lymphocytes % Monocytes % Eosinophils % Basophils % Absolute Granulocytes Basophils # pO2/FiO2 Ratio 28.0 VBG pH 7.36 VBG pCO2 at Pat Temp 47 VBG pO2 at Pat Temp 44 H VBG HCO3 26.6 VBG O2 Sat (Ana) 81.9 L VBG Base Excess 0.6 VBG Hemoglobin 13.1 VBG Carboxyhemoglobin 3.0 POC Potassium 4.9 Sodium Potassium Chloride Carbon Dioxide Anion Gap BUN Creatinine Estimated GFR Glucose POC Glucometer 157 H 211 H Hemoglobin A1c Lactic Acid Calcium Magnesium Total Bilirubin AST ALT Alkaline Phosphatase Serum Total Protein Albumin Urinalys Dipstick Clnc Urine Color Urine Appearance Urine pH Ur Specific [place] POC Urine Protein Conf Urine Ketones Urine Nitrite Urine Bilirubin Urine Urobilinogen Urine Leukocytes Urine WBC (Auto) Urine RBC (Auto) U Epithel Cells (Auto) Urine Bacteria (Auto) Urine RBC Ur Culture Indicated? Urine Glucose Ethyl Alcohol Influenza Type A Ag Influenza Type B Ag RSV (PCR) SARS-CoV-2 (PCR) Group A Strep Antibody 10/06/21 10/06/21 10/06/21 01:00 04:00 04:06 WBC RBC Hgb Hct MCV MCH MCHC RDW Plt Count MPV Gran % Eos # (Auto) Absolute Lymphs (auto) Absolute Monos (auto) Lymphocytes % Monocytes % Eosinophils % Basophils % Absolute Granulocytes Basophils # pO2/FiO2 Ratio 21.0 VBG pH 7.32 VBG pCO2 at Pat Temp 56 H VBG pO2 at Pat Temp 24 L VBG HCO3 28.9 H VBG O2 Sat (Ana) 53.3 L VBG Base Excess 1.6 VBG Hemoglobin 13.0 VBG Carboxyhemoglobin 3.3 POC Potassium 4.9 Sodium 135 L D Potassium 4.1 D Chloride 102 Carbon Dioxide 24 Anion Gap 12.1 BUN 35 H Creatinine 1.47 H Estimated GFR 38.8 Glucose 213 H POC Glucometer 268 H Hemoglobin A1c Lactic Acid 0.9 Calcium 8.7 Magnesium Total Bilirubin AST ALT Alkaline Phosphatase Serum Total Protein Albumin Urinalys Dipstick Clnc Urine Color Urine Appearance Urine pH Ur Specific [place] POC Urine Protein Conf Urine Ketones Urine Nitrite Urine Bilirubin Urine Urobilinogen Urine Leukocytes Urine WBC (Auto) Urine RBC (Auto) U Epithel Cells (Auto) Urine Bacteria (Auto) Urine RBC Ur Culture Indicated? Urine Glucose Ethyl Alcohol Influenza Type A Ag Influenza Type B Ag RSV (PCR) SARS-CoV-2 (PCR) Group A Strep Antibody 10/06/21 10/06/21 10/06/21 05:15 05:15 05:15 WBC 6.0 RBC 4.13 Hgb 12.9 Hct 39.6 MCV 95.9 MCH 31.2 MCHC 32.6 RDW 14.4 H Plt Count 135 L MPV 12.7 H Gran % 47.5 Eos # (Auto) 0.30 Absolute Lymphs (auto) 2.27 Absolute Monos (auto) 0.53 Lymphocytes % 37.9 Monocytes % 8.8 Eosinophils % 5.0 Basophils % 0.8 Absolute Granulocytes 2.84 Basophils # 0.05 pO2/FiO2 Ratio VBG pH VBG pCO2 at Pat Temp VBG pO2 at Pat Temp VBG HCO3 VBG O2 Sat (Ana) VBG Base Excess VBG Hemoglobin VBG Carboxyhemoglobin POC Potassium Sodium 136 L Potassium 4.6 Chloride 104 Carbon Dioxide 26 Anion Gap 10.2 BUN 32 H Creatinine 1.53 H Estimated GFR 37.1 Glucose 257 H POC Glucometer Hemoglobin A1c > 14.00 H Lactic Acid Calcium 8.8 Magnesium Total Bilirubin 0.70 AST 20 ALT 15 Alkaline Phosphatase 77 Serum Total Protein 6.1 L Albumin 3.4 L Urinalys Dipstick Clnc Urine Color Urine Appearance Urine pH Ur Specific [place] POC Urine Protein Conf Urine Ketones Urine Nitrite Urine Bilirubin Urine Urobilinogen Urine Leukocytes Urine WBC (Auto) Urine RBC (Auto) U Epithel Cells (Auto) Urine Bacteria (Auto) Urine RBC Ur Culture Indicated? Urine Glucose Ethyl Alcohol Influenza Type A Ag Influenza Type B Ag RSV (PCR) SARS-CoV-2 (PCR) Group A Strep Antibody 10/06/21 10/06/21 07:14 11:20 WBC RBC Hgb Hct MCV MCH MCHC RDW Plt Count MPV Gran % Eos # (Auto) Absolute Lymphs (auto) Absolute Monos (auto) Lymphocytes % Monocytes % Eosinophils % Basophils % Absolute Granulocytes Basophils # pO2/FiO2 Ratio VBG pH VBG pCO2 at Pat Temp VBG pO2 at Pat Temp VBG HCO3 VBG O2 Sat (Ana) VBG Base Excess VBG Hemoglobin VBG Carboxyhemoglobin POC Potassium Sodium Potassium Chloride Carbon Dioxide Anion Gap BUN Creatinine Estimated GFR Glucose POC Glucometer 227 H 366 H Hemoglobin A1c Lactic Acid Calcium Magnesium Total Bilirubin AST ALT Alkaline Phosphatase Serum Total Protein Albumin Urinalys Dipstick Clnc Urine Color Urine Appearance Urine pH Ur Specific [place] POC Urine Protein Conf Urine Ketones Urine Nitrite Urine Bilirubin Urine Urobilinogen Urine Leukocytes Urine WBC (Auto) Urine RBC (Auto) U Epithel Cells (Auto) Urine Bacteria (Auto) Urine RBC Ur Culture Indicated? Urine Glucose Ethyl Alcohol Influenza Type A Ag Influenza Type B Ag RSV (PCR) SARS-CoV-2 (PCR) Group A Strep Antibody Chief Complaint Diagnosis Uncontrolled diabetes Allergies Allergy/AdvReac Type Severity Reaction Status Date / Time Sulfa (Sulfonamide Allergy Intermediate Hives Verified 10/06/21 01:28 Antibiotics) Vital Signs (Last 24 hours) Temp Pulse Resp BP BP Pulse Ox 10/06/21 12:00 98.2 F 73 16 160/98 98 10/06/21 11:30 66 10/06/21 07:55 98.0 F 66 18 160/97 99 10/06/21 07:46 63 10/06/21 04:00 97.3 F 64 17 119/77 96 10/06/21 01:11 97.3 F 68 16 137/77 93 L 10/06/21 01:00 93 L 10/06/21 00:35 65 18 101/64 98 10/06/21 00:00 63 16 93/57 98 10/05/21 23:38 62 18 88/50 95 10/05/21 22:30 64 18 73/44 98 10/05/21 20:00 81 18 121/87 97 10/05/21 19:14 70 20 144/90 98 10/05/21 18:41 98 10/05/21 18:12 78 18 130/84 98 10/05/21 17:02 97.8 F 85 18 175/102 91 L Home Medications Medication Instructions Recorded Confirmed Last Taken Type Insulin Glargine [Lantus Insulin] 20 units SQ HS 30 Days 10/06/21 Unknown Rx Metformin HCl Xr 500 mg 500 mg PO DAILY #30 tab 10/06/21 Unknown Rx [Glucophage XR 500 MG] Semaglutide [Ozempic] 0.25 mg SQ WEEKLY 30 Days 10/06/21 Unknown Rx Current Medications Discontinued Medications Generic Name Dose Route Start Last Admin Trade Name Chinmay PRN Reason Stop Dose Admin Acetaminophen 650 mg 10/06/21 00:13 Acetaminophen 325 Mg Tablet PO 11/05/21 00:12 Q4H PRN PRN PAIN AND/OR FEVER Hydrocodone Bitart/Acetaminophen 1 tablet 10/06/21 10:00 10/06/21 10:08 Hydrocodone/Acetamin 10-325 Mg Tablet PO 10/11/21 09:59 1 tablet QID BARBER Administration Alprazolam 0.5 mg 10/06/21 09:50 10/06/21 10:11 Alprazolam 0.5 Mg Tablet PO 11/05/21 09:49 0.5 mg Q8H PRN PRN Administration ANXIETY Amlodipine Besylate 10 mg 10/06/21 22:00 Amlodipine Besylate 5 Mg Tablet PO 11/05/21 21:59 HS BARBER Gabapentin 400 mg 10/06/21 10:00 10/06/21 10:08 Gabapentin 400 Mg Capsule PO 11/05/21 09:59 400 mg TID BARBER Administration Sodium Chloride 1,000 mls @ 999 mls/hr 10/05/21 17:24 10/05/21 19:11 Sodium Chloride 0.9% 1000 Ml IV 10/05/21 18:24 Infused .Q1H1M STA Infusion Insulin Human Regular 100 unit 100 mls @ 11 mls/hr 10/05/21 17:32 10/05/21 21 :37 / Sodium Chloride IV 11/04/21 17:31 0 unit/hr .Q9H6M PRN 0 mls/hr DKA/HYPERGLYCEMIA Titration Protocol 11 UNIT/HR Sodium Chloride Confirm 10/05/21 17:39 Sodium Chloride 0.9% 1000 Ml Administered 10/05/21 17:40 Dose 1,000 mls @ ud .ROUTE .STK-MED ONE Sodium Chloride Confirm 10/05/21 17:57 Sodium Chloride 0.9% 100 Ml Bag Administered 10/05/21 17:58 Dose 100 mls @ ud .ROUTE .STK-MED ONE Sodium Chloride Confirm 10/05/21 21:56 Sodium Chloride 0.9% 1000 Ml Administered 10/05/21 21:57 Dose 1,000 mls @ ud .ROUTE .STK-MED ONE Sodium Chloride 1,000 mls @ 999 mls/hr 10/05/21 22:01 10/05/21 22:02 Sodium Chloride 0.9% 1000 Ml IV 10/05/21 23:01 999 mls/hr .Q1H1M STA Administration Sodium Chloride 1,000 mls @ 999 mls/hr 10/05/21 23:18 10/05/21 23:20 Sodium Chloride 0.9% 1000 Ml IV 10/06/21 00:18 999 mls/hr .Q1H1M STA Administration Sodium Chloride Confirm 10/05/21 23:17 Sodium Chloride 0.9% 1000 Ml Administered 10/05/21 23:18 Dose 1,000 mls @ ud .ROUTE .STK-MED ONE Sodium Chloride 1,000 mls @ 100 mls/hr 10/06/21 00:13 10/06/21 11:31 Sodium Chloride 0.9% 1000 Ml IV 11/05/21 00:12 Not Given .Q10H BARBER Ceftriaxone Sodium/Dextrose 1 g in 50 mls @ 100 mls/hr 10/06/21 10:00 10/06/21 00:25 Rocephin 1 Gm-D5w 50 Ml Bag IV 10/09/21 09:59 100 mls/hr Q24H10 BARBER Administration Ceftriaxone Sodium/Dextrose 1 g in 50 mls @ 100 mls/hr 10/06/21 22:00 Rocephin 1 Gm-D5w 50 Ml Bag IV 10/09/21 21:59 Q24H22 BARBER Insulin Human Regular 10 unit 10/05/21 17:24 10/05/21 17:40 Insulin Regular, Human 1 Unit SQ 10/05/21 17:25 10 unit STAT ONE Administration Insulin Human Regular Confirm 10/05/21 17:39 Insulin Regular, Human 1 Unit Administered 10/05/21 17:40 Dose 10 unit .ROUTE .STK-MED ONE Insulin Human Regular Confirm 10/05/21 17:57 Insulin Regular, Human 1 Unit Administered 10/05/21 17:58 Dose 100 unit .ROUTE .STK-MED ONE Insulin Human Regular 0 unit 10/06/21 01:54 10/06/21 11:25 Insulin Regular, Human 1 Unit SQ 11/05/21 01:53 11 unit UD PRN Administration HYPERGLYCEMIA Lisinopril 20 mg 10/06/21 10:00 10/06/21 10:08 Lisinopril 20 Mg Tablet PO 11/05/21 09:59 20 mg BID BARBER Administration Metformin HCl 500 mg 10/06/21 10:00 10/06/21 10:08 Metformin Hcl 500 Mg Tablet PO 11/05/21 09:59 500 mg QAM@0800 BARBER Administration Morphine Sulfate 2 mg 10/06/21 00:13 Morphine Sulfate 2 Mg/Ml Inj IV 10/11/21 00:12 Q4H PRN PRN PAIN Non-Formulary Drug : 2 each 10/06/21 10:00 10/06/21 10:09 Propranolol 80 Mg PO 11/05/21 09:59 2 each Caps DAILY BARBER Administration Ondansetron HCl 4 mg 10/06/21 00:13 Ondansetron Hcl 4 Mg/2 Ml Vial IV 11/05/21 00:12 Q6H PRN PRN NAUSEA/VOMITING Tizanidine HCl 2 mg 10/06/21 10:00 10/06/21 10:07 Tizanidine Hcl 4 Mg Tablet PO 11/05/21 09:59 2 mg BID BARBER Administration Intake & Output (Last 24 hours) 10/04/21 10/05/21 10/06/21 10/07/21 11:59 11:59 11:59 11:59 Intake Total 948 Output Total 1800 Balance -852 Weight 118 kg Microbiology Results (Last 24 hours) 10/05/21 17:34 Clean Catch Midstream Urine Culture - Pending Laboratory Results (Last 24 hours) 10/06/21 10/06/21 10/06/21 11:20 07:14 05:15 WBC RBC Hgb Hct MCV MCH MCHC RDW Plt Count MPV Gran % Eos # (Auto) Absolute Lymphs (auto) Absolute Monos (auto) Lymphocytes % Monocytes % Eosinophils % Basophils % Absolute Granulocytes Basophils # pO2/FiO2 Ratio VBG pH VBG pCO2 at Pat Temp VBG pO2 at Pat Temp VBG HCO3 VBG O2 Sat (Ana) VBG Base Excess VBG Hemoglobin VBG Carboxyhemoglobin POC Potassium Sodium Potassium Chloride Carbon Dioxide Anion Gap BUN Creatinine Estimated GFR Glucose POC Glucometer 366 H 227 H Hemoglobin A1c > 14.00 H Lactic Acid Calcium Magnesium Total Bilirubin AST ALT Alkaline Phosphatase Serum Total Protein Albumin Urinalys Dipstick Clnc Urine Color Urine Appearance Urine pH Ur Specific [place] POC Urine Protein Conf Urine Ketones Urine Nitrite Urine Bilirubin Urine Urobilinogen Urine Leukocytes Urine WBC (Auto) Urine RBC (Auto) U Epithel Cells (Auto) Urine Bacteria (Auto) Urine RBC Ur Culture Indicated? Urine Glucose Ethyl Alcohol Influenza Type A Ag Influenza Type B Ag RSV (PCR) SARS-CoV-2 (PCR) Group A Strep Antibody 10/06/21 10/06/21 10/06/21 05:15 05:15 04:06 WBC 6.0 RBC 4.13 Hgb 12.9 Hct 39.6 MCV 95.9 MCH 31.2 MCHC 32.6 RDW 14.4 H Plt Count 135 L MPV 12.7 H Gran % 47.5 Eos # (Auto) 0.30 Absolute Lymphs (auto) 2.27 Absolute Monos (auto) 0.53 Lymphocytes % 37.9 Monocytes % 8.8 Eosinophils % 5.0 Basophils % 0.8 Absolute Granulocytes 2.84 Basophils # 0.05 pO2/FiO2 Ratio VBG pH VBG pCO2 at Pat Temp VBG pO2 at Pat Temp VBG HCO3 VBG O2 Sat (Ana) VBG Base Excess VBG Hemoglobin VBG Carboxyhemoglobin POC Potassium Sodium 136 L Potassium 4.6 Chloride 104 Carbon Dioxide 26 Anion Gap 10.2 BUN 32 H Creatinine 1.53 H Estimated GFR 37.1 Glucose 257 H POC Glucometer 268 H Hemoglobin A1c Lactic Acid Calcium 8.8 Magnesium Total Bilirubin 0.70 AST 20 ALT 15 Alkaline Phosphatase 77 Serum Total Protein 6.1 L Albumin 3.4 L Urinalys Dipstick Clnc Urine Color Urine Appearance Urine pH Ur Specific [place] POC Urine Protein Conf Urine Ketones Urine Nitrite Urine Bilirubin Urine Urobilinogen Urine Leukocytes Urine WBC (Auto) Urine RBC (Auto) U Epithel Cells (Auto) Urine Bacteria (Auto) Urine RBC Ur Culture Indicated? Urine Glucose Ethyl Alcohol Influenza Type A Ag Influenza Type B Ag RSV (PCR) SARS-CoV-2 (PCR) Group A Strep Antibody 10/06/21 10/06/21 10/05/21 04:00 01:00 23:26 WBC RBC Hgb Hct MCV MCH MCHC RDW Plt Count MPV Gran % Eos # (Auto) Absolute Lymphs (auto) Absolute Monos (auto) Lymphocytes % Monocytes % Eosinophils % Basophils % Absolute Granulocytes Basophils # pO2/FiO2 Ratio 21.0 VBG pH 7.32 VBG pCO2 at Pat Temp 56 H VBG pO2 at Pat Temp 24 L VBG HCO3 28.9 H VBG O2 Sat (Ana) 53.3 L VBG Base Excess 1.6 VBG Hemoglobin 13.0 VBG Carboxyhemoglobin 3.3 POC Potassium 4.9 Sodium 135 L D Potassium 4.1 D Chloride 102 Carbon Dioxide 24 Anion Gap 12.1 BUN 35 H Creatinine 1.47 H Estimated GFR 38.8 Glucose 213 H POC Glucometer 211 H Hemoglobin A1c Lactic Acid 0.9 Calcium 8.7 Magnesium Total Bilirubin AST ALT Alkaline Phosphatase Serum Total Protein Albumin Urinalys Dipstick Clnc Urine Color Urine Appearance Urine pH Ur Specific [place] POC Urine Protein Conf Urine Ketones Urine Nitrite Urine Bilirubin Urine Urobilinogen Urine Leukocytes Urine WBC (Auto) Urine RBC (Auto) U Epithel Cells (Auto) Urine Bacteria (Auto) Urine RBC Ur Culture Indicated? Urine Glucose Ethyl Alcohol Influenza Type A Ag Influenza Type B Ag RSV (PCR) SARS-CoV-2 (PCR) Group A Strep Antibody 10/05/21 10/05/21 10/05/21 22:49 21:32 20:42 WBC RBC Hgb Hct MCV MCH MCHC RDW Plt Count MPV Gran % Eos # (Auto) Absolute Lymphs (auto) Absolute Monos (auto) Lymphocytes % Monocytes % Eosinophils % Basophils % Absolute Granulocytes Basophils # pO2/FiO2 Ratio 28.0 VBG pH 7.36 VBG pCO2 at Pat Temp 47 VBG pO2 at Pat Temp 44 H VBG HCO3 26.6 VBG O2 Sat (Ana) 81.9 L VBG Base Excess 0.6 VBG Hemoglobin 13.1 VBG Carboxyhemoglobin 3.0 POC Potassium 4.9 Sodium Potassium Chloride Carbon Dioxide Anion Gap BUN Creatinine Estimated GFR Glucose POC Glucometer 157 H 237 H Hemoglobin A1c Lactic Acid Calcium Magnesium Total Bilirubin AST ALT Alkaline Phosphatase Serum Total Protein Albumin Urinalys Dipstick Clnc Urine Color Urine Appearance Urine pH Ur Specific [place] POC Urine Protein Conf Urine Ketones Urine Nitrite Urine Bilirubin Urine Urobilinogen Urine Leukocytes Urine WBC (Auto) Urine RBC (Auto) U Epithel Cells (Auto) Urine Bacteria (Auto) Urine RBC Ur Culture Indicated? Urine Glucose Ethyl Alcohol Influenza Type A Ag Influenza Type B Ag RSV (PCR) SARS-CoV-2 (PCR) Group A Strep Antibody 10/05/21 10/05/21 10/05/21 19:25 18:00 18:00 WBC RBC Hgb Hct MCV MCH MCHC RDW Plt Count MPV Gran % Eos # (Auto) Absolute Lymphs (auto) Absolute Monos (auto) Lymphocytes % Monocytes % Eosinophils % Basophils % Absolute Granulocytes Basophils # pO2/FiO2 Ratio VBG pH VBG pCO2 at Pat Temp VBG pO2 at Pat Temp VBG HCO3 VBG O2 Sat (Ana) VBG Base Excess VBG Hemoglobin VBG Carboxyhemoglobin POC Potassium Sodium Potassium Chloride Carbon Dioxide Anion Gap BUN Creatinine Estimated GFR Glucose POC Glucometer 589 H* Hemoglobin A1c Lactic Acid Calcium Magnesium Total Bilirubin AST ALT Alkaline Phosphatase Serum Total Protein Albumin Urinalys Dipstick Clnc Urine Color Urine Appearance Urine pH Ur Specific [place] POC Urine Protein Conf Urine Ketones Urine Nitrite Urine Bilirubin Urine Urobilinogen Urine Leukocytes Urine WBC (Auto) Urine RBC (Auto) U Epithel Cells (Auto) Urine Bacteria (Auto) Urine RBC Ur Culture Indicated? Urine Glucose Ethyl Alcohol Influenza Type A Ag NEGATIVE Influenza Type B Ag NEGATIVE RSV (PCR) NEGATIVE SARS-CoV-2 (PCR) NEGATIVE Group A Strep Antibody NEGATIVE 10/05/21 10/05/21 10/05/21 18:00 17:46 17:46 WBC 4.8 RBC 4.40 Hgb 13.9 Hct 41.9 MCV 95.2 MCH 31.6 MCHC 33.2 RDW 13.9 Plt Count 124 L MPV 12.5 H Gran % 59.8 Eos # (Auto) 0.23 Absolute Lymphs (auto) 1.25 Absolute Monos (auto) 0.43 Lymphocytes % 25.9 Monocytes % 8.9 Eosinophils % 4.8 Basophils % 0.6 Absolute Granulocytes 2.88 Basophils # 0.03 pO2/FiO2 Ratio 21.0 VBG pH 7.49 H VBG pCO2 at Pat Temp 33 L VBG pO2 at Pat Temp 64 H VBG HCO3 25.1 VBG O2 Sat (Ana) 95.7 VBG Base Excess 2.2 H VBG Hemoglobin 14.2 VBG Carboxyhemoglobin 5.1 POC Potassium 5.4 H Sodium Potassium Chloride Carbon Dioxide Anion Gap BUN Creatinine Estimated GFR Glucose POC Glucometer Hemoglobin A1c Lactic Acid 1.1 Calcium Magnesium Total Bilirubin AST ALT Alkaline Phosphatase Serum Total Protein Albumin Urinalys Dipstick Clnc Urine Color Urine Appearance Urine pH Ur Specific [place] POC Urine Protein Conf Urine Ketones Urine Nitrite Urine Bilirubin Urine Urobilinogen Urine Leukocytes Urine WBC (Auto) Urine RBC (Auto) U Epithel Cells (Auto) Urine Bacteria (Auto) Urine RBC Ur Culture Indicated? Urine Glucose Ethyl Alcohol Influenza Type A Ag Influenza Type B Ag RSV (PCR) SARS-CoV-2 (PCR) Group A Strep Antibody 10/05/21 10/05/21 17:34 17:24 WBC RBC Hgb Hct MCV MCH MCHC RDW Plt Count MPV Gran % Eos # (Auto) Absolute Lymphs (auto) Absolute Monos (auto) Lymphocytes % Monocytes % Eosinophils % Basophils % Absolute Granulocytes Basophils # pO2/FiO2 Ratio VBG pH VBG pCO2 at Pat Temp VBG pO2 at Pat Temp VBG HCO3 VBG O2 Sat (Ana) VBG Base Excess VBG Hemoglobin VBG Carboxyhemoglobin POC Potassium Sodium 127 L Potassium 5.2 H Chloride 92 L Carbon Dioxide 24 Anion Gap 16.1 H BUN 40 H Creatinine 1.34 H Estimated GFR 43.2 Glucose 796 H* POC Glucometer Hemoglobin A1c Lactic Acid Calcium 9.9 Magnesium 1.9 Total Bilirubin 1.10 AST 20 ALT 18 Alkaline Phosphatase 107 Serum Total Protein 6.5 Albumin 3.9 Urinalys Dipstick Clnc MAIN LAB Urine Color YELLOW Urine Appearance CLEAR Urine pH 6.0 Ur Specific [place] 1.010 POC Urine Protein Conf NEGATIVE Urine Ketones NEGATIVE Urine Nitrite NEGATIVE Urine Bilirubin NEGATIVE Urine Urobilinogen 0.2 Urine Leukocytes TRACE Urine WBC (Auto) 6-10 Urine RBC (Auto) 3-5 U Epithel Cells (Auto) RARE Urine Bacteria (Auto) RARE Urine RBC TRACE-INTACT Ur Culture Indicated? YES Urine Glucose >=1000 Ethyl Alcohol < 10 Influenza Type A Ag Influenza Type B Ag RSV (PCR) SARS-CoV-2 (PCR) Group A Strep Antibody Orders (Last 24 hours) Category Date Time Status Bedrest with BRP/BSC ROUTINE Activity 10/06/21 00:13 Completed Up With Assistance ROUTINE Activity 10/06/21 00:13 Completed Code Status Order ROUTINE Care 10/06/21 00:13 Completed EKG-ER Only STAT Care 10/05/21 17:24 Completed Fall Protocol Q1H Care 10/06/21 00:13 Completed IV Care Q6H Care 10/06/21 00:13 Completed IV Insertion STAT Care 10/05/21 17:24 Completed POCT Glucose Check ACHS Care 10/06/21 00:[address] in Observation ROUTINE Care 10/06/21 00:13 Completed [place] Mccullough ROUTINE Care 10/06/21 00:13 Completed Telemetry Q4H Care 10/06/21 00:13 Completed Weight,Daily 0600 Care 10/06/21 00:13 Completed Consistent Carbohydrate Diet 2000 Calorie Diet 10/06/21 Breakfast Completed Nutritional Admission Screen ONCE Diet 10/06/21 01:25 Completed Discharge Routine Discharge 10/06/21 Ordered Discharge/Telephone Order Routine Discharge 10/06/21 Active CHEST 1 VIEW (PORTABLE) Stat Exams 10/05/21 17:24 Completed BMP Urgent Lab 10/06/21 01:00 Completed CBC W DIFF AM.LAB Lab 10/06/21 05:15 Completed CBC W DIFF Stat Lab 10/05/21 18:00 Completed CMP AM.LAB Lab 10/06/21 05:15 Completed CMP Stat Lab 10/05/21 17:24 Completed COVID/FLU/RSV Panel Stat Lab 10/05/21 18:00 Completed CULTURE,URINE Stat Lab 10/05/21 17:34 Received ETHYL ALCOHOL Stat Lab 10/05/21 17:24 Completed Group A Strep Stat Lab 10/05/21 18:00 Completed HEMOGLOBIN A1C Urgent Lab 10/06/21 05:15 Completed Lactic Acid AM.LAB Lab 10/06/21 04:00 Completed Lactic Acid Urgent Lab 10/05/21 17:46 Completed MAGNESIUM Stat Lab 10/05/21 17:24 Completed POCT GLUCOSE Stat Lab 10/05/21 18:23 Received POCT GLUCOSE Stat Lab 10/05/21 19:25 Completed POCT GLUCOSE Stat Lab 10/05/21 20:42 Completed POCT GLUCOSE Stat Lab 10/05/21 21:32 Completed POCT GLUCOSE Stat Lab 10/05/21 23:26 Completed POCT GLUCOSE Stat Lab 10/06/21 04:06 Completed POCT GLUCOSE Stat Lab 10/06/21 07:14 Completed POCT GLUCOSE Stat Lab 10/06/21 11:20 Completed UA W/RFX CULTURE Stat Lab 10/05/21 17:34 Completed VBG [VENOUS BLOOD GAS] Stat Lab 10/05/21 22:49 Completed VENOUS BLOOD GAS AM.LAB Lab 10/06/21 04:00 Completed VENOUS BLOOD GAS Urgent Lab 10/05/21 17:46 Completed ALPRAZolam 0.5 MG [xanAX 0.5 MG] Med 10/06/21 09:50 Discontinued 0.5 mg PO Q8H PRN PRN Acetaminophen 325 mg [Tylenol 325 mg] Med 10/06/21 00:13 Discontinued 650 mg PO Q4H PRN PRN Amlodipine Besylate 5 mg [Norvasc 5 mg] Med 10/06/21 22:00 Discontinued 10 mg PO HS Ceftriaxone 1 GM/50 ML PREMIX* [ROCEPHIN 1 Gm-D5w 50 ml Med 10/06/21 10:00 Discontinued Bag] 1 g in 50 ml IV Q24H10 Ceftriaxone 1 GM/50 ML PREMIX* [ROCEPHIN 1 Gm-D5w 50 ml Med 10/06/21 22:00 Di scontinued Bag] 1 g in 50 ml IV Q24H22 Gabapentin 400 mg [Neurontin 400 MG] Med 10/06/21 10:00 Discontinued 400 mg PO TID Hydrocodone/Acetaminophen [Hydrocodone-Acetamin 10-325 Med 10/06/21 10:00 Discontinued mg] 1 tablet PO QID Insulin Regular, Human [Humulin R] Med 10/05/21 17:39 Discontinued 10 unit .ROUTE .STK-MED ONE Insulin Regular, Human [Humulin R] Med 10/05/21 17:24 Discontinued 10 unit SQ STAT ONE Insulin Regular, Human [Humulin R] Med 10/05/21 17:57 Discontinued 100 unit .ROUTE .STK-MED ONE Insulin Regular, Human [Humulin R] Med 10/06/21 01:54 Discontinued See Dose Instructions SQ UD PRN Lisinopril 20 mg [Zestril 20 MG] Med 10/06/21 10:00 Discontinued 20 mg PO BID Metformin HCl 500 mg [Glucophage 500 MG] Med 10/06/21 10:00 Discontinued 500 mg PO QAM@0800 Morphine Sulfate 2 mg Inj Med 10/06/21 00:13 Discontinued 2 mg IV Q4H PRN PRN NaCl 0.9% 1000 ml [Sodium Chloride 0.9% 1000 ML] 1,000 Med 10/05/21 17:39 Discontinued ml .ROUTE UD NaCl 0.9% 1000 ml [Sodium Chloride 0.9% 1000 ML] 1,000 Med 10/05/21 21:56 Discontinued ml .ROUTE UD NaCl 0.9% 1000 ml [Sodium Chloride 0.9% 1000 ML] 1,000 Med 10/05/21 23:17 Discontinued ml .ROUTE UD NaCl 0.9% 1000 ml [Sodium Chloride 0.9% 1000 ML] 1,000 Med 10/06/21 00:13 Dis continued ml IV 100 mls/hr NaCl 0.9% 1000 ml [Sodium Chloride 0.9% 1000 ML] 1,000 Med 10/05/21 17:24 Discontinued ml IV 999 mls/hr NaCl 0.9% 1000 ml [Sodium Chloride 0.9% 1000 ML] 1,000 Med 10/05/21 22:01 Discontinued ml IV 999 mls/hr NaCl 0.9% 1000 ml [Sodium Chloride 0.9% 1000 ML] 1,000 Med 10/05/21 23:18 Discontinued ml IV 999 mls/hr NaCl 0.9% 100Ml [Sodium Chloride 0.9% 100 ML BAG] 100 Med 10/05/21 17:32 Discontinued ml Insulin Regular, Human [Humulin R] 100 unit IV 11 unit/hr NaCl 0.9% 100Ml [Sodium Chloride 0.9% 100 ML BAG] 100 Med 10/05/21 17:57 Discontinued ml .ROUTE UD Non-Formulary Drug [Non-Formulary Item] Med 10/06/21 10:00 Discontinued 2 each PO DAILY Ondansetron HCl 4 mg/2 ml [Zofran 4 MG/2 ML VIAL] Med 10/06/21 00:13 Discontinued 4 mg IV Q6H PRN PRN Tizanidine HCl 4 mg [Zanaflex 4 MG] Med 10/06/21 10:00 Discontinued 2 mg PO BID Oxygen Nasal Cannula 2 lpm RT 10/06/21 05:36 Completed Respiratory Therapy Consult ROUTINE RT 10/06/21 00:13 Completed Patient Care Notes (Last 24 hours) 10/06/21 13:57 Nursing Note by Karey Ybarra PT WOULD LIKE TO TRY METFORMIN ER AT HOME BEFORE TAKING INJECTIONS. SHE FEELS THAT IT WON'T UPSET HER STOMACH BADLY REGULAR METFORMIN. EXTENSIVE EDUCATION ON MEDICATIONS GIVEN AND PT TOLD THAT SHE MUST FOLLOW UP WITH HER PRIMARY PHYSICIAN. PT'S DAUGHTER AT BEDSIDE AND PLANS TO CALL FOR APPOINTMENT IN AM FOR HER MOTHER AND SHE AND PATIENT AND PT'S ALL VERBALIZED UNDERSTANDING OF MEDICATION EDUCATION. THEY ALL UNDERSTAND THAT IF PT CANNOT TOLERATE METFORMIN IN ANY FORM SHE HAS TO BEGIN TAKING INSULIN AND OZEMPIC (BOTH OF WHICH HAVE BEEN CALLED IN TO [facility]). Initialized on 10/06/21 13:57 - END OF NOTE 10/06/21 13:29 Nursing Note by Scarlet Noel ROUNDED WITH DR. NGO. PATIENT STATED THAT SHE WOULD REFUSE TO TAKE METFORMIN AT HOME DUE THE THE GI ISSUES. DR. NGO AND PATIENT DISCUSSED STARTING ON OZEMPIC WEEKLY AND LANTUS 20 UNITS HS. FOLLOW UP WITH PCP. THIS NURSE CALLED MEDICATIONS INTO [facility] Initialized on 10/06/21 13:29 - END OF NOTE 10/06/21 01:17 Respiratory Note by Mary Kate Tijerina PT HAS NOT RESPIRATORY HX NO THERAPY INDICATED Initialized on 10/06/21 01:17 - END OF NOTE Code(s): [id number] - - Discharge Discharge Date: 10/06/21 Disposition: Home, Self-Care Condition: Stable Prescriptions: New Insulin Glargine [Lantus Insulin] 20 units SQ HS 30 Days Semaglutide [Ozempic] 0.25 mg SQ WEEKLY 30 Days Metformin HCl Xr 500 mg [Glucophage XR 500 MG] 500 mg PO DAILY #30 tab Continue lisinopriL [Lisinopril] 20 mg PO BID ALPRAZolam [Alprazolam] 0.5 mg PO Q8H PRN PRN PRN Reason: Anxiety Tizanidine HCl 2 mg PO BID Hydrocodone/Acetaminophen [Hydrocodone-Acetamin 10-325 mg] 1 tab PO QID Gabapentin 400 mg [Neurontin 400 MG] 1 tab PO TID Propranolol HCl [Propranolol HCl ER] 160 mg PO DAILY Amlodipine Besylate 5 mg [Norvasc 5 mg] 10 mg PO HS Discontinued Metformin HCl 500 mg [Glucophage 500 MG] 500 mg PO DAILY Instructions: Diabetes Exchange Diet, Diabetes Diet , Hyperglycemia, Adult (DC), Blood Glucose Monitoring, Heart Disease in Diabetics (DC), Peripheral Neuropathy (DC) Additional Instructions: YOU CAN TAKE THE LONG ACTING METFORMIN BUT IF YOU CAN'T TOLERATE IT, START TAKING THE OZEMPIC and lantus . YOU NEED TO FOLLOW UP WITH YOUR PRIMARY BUTTERMAKER [employer]INUOUS [employer]URN. Follow up with: ASHVIN RUELAS MD [Primary Care Provider] -
[2021-10-06] MEDS ORDERED: NORVASC 5 MG PO SCH (22:00)
== END 2021-10-06 14:10 | disposition home or self-care (01) ==
LOC: ED 16:45 → ICU 10-06 00:09
PROVIDERS: ADMIT General Practice; ATTEND General Practice
DX: E11.65 Type 2 diabetes mellitus with hyperglycemia (principal); N39.0 Urinary tract infection, site not specified; I10 Essential (primary) hypertension; Z20.828 Contact with and (suspected) exposure to other viral communicable diseases; Z79.899 Other long term (current) drug therapy
CPT/HCPCS: 0241U; 36000; 36415; 71045; 80048; 80053; 81015; 82805; 82947; 83036; 83605; 83735; 85025; 87086; 87651; 93005; 93268; 96360; 96361; 96365; 96366; 96372; 99285; 99291; G0378; G0480; 80307; J0696; J1815; A9270-GY